=== PATIENT | female | born 1955 | race Caucasian/White ===

== ENCOUNTER 2020-05-01 14:00 | Outpatient (REF) | payer MEDICARE, BC, SELFPAY ==
[2020-05-01 21:43] LABS: ALT 36 U/L (14-59); AST 25 U/L (15-37); Albumin 3.7 g/dL (3.4-5.0); Alkaline Phosphatase 114 U/L (46-116); Anion Gap 12.4 mmol/L (3-11); BUN 19 mg/dL (7-18); Bilirubin, Total 0.5 mg/dL (0.2-1.0); CO2 23.6 mmol/L (21.0-32.0); CREATININE 0.81 mg/dL (0.55-1.02); Calcium 9.5 mg/dL (8.5-10.1); Chloride 102 mmol/L (98-107); Glucose 106 mg/dL (74-106); Potassium 3.9 mmol/L (3.5-5.1); Sodium 138 mmol/L (136-145); Total Protein 7.2 g/dL (6.4-8.2)
== END 2020-05-01 14:20 ==
LOC: NCHCN 14:00
PROVIDERS: Visit Provider Nurse Practitioner Family
DX: L30.4 Erythema intertrigo (principal); R03.0 Elevated blood-pressure reading, without diagnosis of hypertension; G80.9 Cerebral palsy, unspecified; R29.6 Repeated falls; R56.9 Unspecified convulsions; F41.9 Anxiety disorder, unspecified; K21.9 Gastro-esophageal reflux disease without esophagitis; D12.6 Benign neoplasm of colon, unspecified
CPT/HCPCS: 80053

== ENCOUNTER 2020-05-29 19:55 | Outpatient (REF) | payer MEDICARE, BC, SELFPAY | END 2020-05-29 20:15 | LOC: NCHCN 19:55 | PROVIDERS: PCP Nurse Practitioner Family; Visit Provider Nurse Practitioner Family | DX: R35.0 Frequency of micturition (principal) | CPT/HCPCS: 87077; 87086; 87186 ==

== ENCOUNTER 2020-06-17 20:58 | Outpatient (REF) | payer MEDICARE, BC, SELFPAY ==
[2020-06-19 18:45] LABS: COVID-19 RT-PCR UVMMC Result Negative (Negative)
== END 2020-06-17 21:18 ==
LOC: NCHCN 20:58
PROVIDERS: PCP Nurse Practitioner Family; Visit Provider Nurse Practitioner Family
DX: Z20.828 Contact with and (suspected) exposure to other viral communicable diseases (principal)
CPT/HCPCS: U0003

== ENCOUNTER 2020-07-22 14:05 | Outpatient (REF) | payer MEDICARE, BC, SELFPAY ==
[2020-07-22 22:43] LABS: COMMENT (LAB VIEW ONLY) 62.99 mg/dL
[2020-07-22 22:46] LABS: Microalb ug/mg Crea 149.4 ug/mg Cr
== END 2020-07-22 14:25 ==
LOC: NCHCN 14:05
PROVIDERS: PCP Nurse Practitioner Family; Visit Provider Nurse Practitioner Family
DX: R35.0 Frequency of micturition (principal); I10 Essential (primary) hypertension
CPT/HCPCS: 82043; 82570; 87086

== ENCOUNTER 2020-07-31 | Outpatient (REF) | payer MEDICARE, BC, SELFPAY | END 2020-08-01 00:38 | disposition home or self-care (01) | LOC: NCHCN | PROVIDERS: PCP Nurse Practitioner Family; Visit Provider Nurse Practitioner Family | DX: R35.0 Frequency of micturition (principal); Z87.440 Personal history of urinary (tract) infections | CPT/HCPCS: 87086 ==

== ENCOUNTER → 2020-08-05 09:45 | Outpatient (BNVA) | payer MEDICARE, BC, SELFPAY | PROVIDERS: PCP Nurse Practitioner Family; Referring Provider Nurse Practitioner Family; Visit Provider Psychiatry & Neurology Neurology | DX: G80.1 Spastic diplegic cerebral palsy (principal); R26.9 Unspecified abnormalities of gait and mobility; F41.8 Other specified anxiety disorders; G40.209 Localization-related (focal) (partial) symptomatic epilepsy and epileptic syndromes with complex partial seizures, not intractable, without status epilepticus; F81.9 Developmental disorder of scholastic skills, unspecified | CPT/HCPCS: 99205 ==

== ENCOUNTER 2020-08-11 19:00 | Outpatient (REF) | payer MEDICARE, BC, SELFPAY | END 2020-08-11 19:01 | disposition home or self-care (01) | LOC: NCHCN 19:00 | PROVIDERS: PCP Nurse Practitioner Family; Visit Provider Nurse Practitioner Family | DX: R35.0 Frequency of micturition (principal) | CPT/HCPCS: 87086 ==

== ENCOUNTER 2020-09-04 01:38 | Outpatient (CLI) | payer MEDICARE, BC, SELFPAY ==
--- NOTE | 2020-09-04 | DI.DEXA_ITS ---
EXAM: XR DEXA BONE DENSITY W/WO TRAE CLINICAL HISTORY: SCREENING FOR OSTEOPOROSIS IN POSTMENOPAUSAL WOMAN,Z78.0 TECHNIQUE: [employer] Horizon C densitometer. COMPARISON: No exams were available for comparison FINDINGS: The lateral view of the thoracic and lumbar spine shows no evidence of compression fractures. The teddy ne mineral density measurements of the lumbar spine correspond to a total T-score of -1.3, in the mil dly osteopenic range. The bone mineral density measurements of the left hip correspond to a total T- score of -1.8 and a femoral neck T-score of -2.7, in the osteo parotic range. The bone mineral densi ty measurements of the right forearm correspond to a total T-score of -1.8. T-score of the distal 3r d is -4.3, in the osteopenic range. IMPRESSION: Osteoporosis of the right forearm and right hip. Osteopenia of the lumbar spine.
--- NOTE | 2020-09-04 14:48 | DI.MAMMO_ITS ---
EXAM: MG MAMMO SCREENING 60 MIN DUR CLINICAL HISTORY: SCREENING, Z12.31, TECHNIQUE: Bilateral full field digital CC and MLO mammographic images were obtained with 3D tomosyn thesis and utilizing computer aided detection (CAD). COMPARISON: None. FINDINGS: Masses/Architectural Distortion: None seen. Microcalcifications: No suspicious pleomorphic-type are seen. Skin Thickening/Nipple Retraction: None. IMPRESSION: 1. No significant interval change with no specific features of malignancy noted. 2. Unless there is more urgent need, screening mammography is recommended, as per [employer] guidelines. BI-RADS Category 1 - Negative Breast Density - Category B - Scattered areas of fibroglandular density Breast density category C or D implies that the patient has dense breast tissue. Dense breast tissue is very common and is not abnormal but dense breast tissue can make it harder to find cancer on a ma mmogram. Also, dense breast tissue may increase their breast cancer risk. This information about the result of the mammogram report was provided to the patient to raise their awareness. Use this report when you speak with the patient about their risks for breast cancer, which includes their family hist ory. At that time, you may recommend for more screening tests (Ultrasound or MRI) as they might be us eful based on their risk. A negative radiographic report should not delay biopsy if a dominant or clinically suspicious mass is present. Up to ten percent of cancers are not identified on mammography. A negative report may reinforce clinical impression. Adenosis and dense breasts may obscure an underlying neoplasm. False positive reports average 6 to 10%. Patient will receive a letter notifying them of these results.
== END 2020-09-04 01:58 ==
PROVIDERS: PCP Nurse Practitioner Family; Visit Provider Nurse Practitioner Family
DX: Z12.31 Encounter for screening mammogram for malignant neoplasm of breast (principal); Z78.0 Asymptomatic menopausal state; M81.0 Age-related osteoporosis without current pathological fracture; M85.88 Other specified disorders of bone density and structure, other site
CPT/HCPCS: 77063; 77067; 77080

== ENCOUNTER 2020-10-07 08:25 | Outpatient (REF) | payer MEDICARE, BC, SELFPAY | END 2020-10-07 08:26 | disposition home or self-care (01) | LOC: NCHCN 08:25 | PROVIDERS: PCP Nurse Practitioner Family; Visit Provider Nurse Practitioner Family | DX: R35.0 Frequency of micturition (principal) | CPT/HCPCS: 87086 ==

== ENCOUNTER → 2020-10-16 08:56 | Outpatient (BNVA) | payer MEDICARE, BC, SELFPAY | PROVIDERS: PCP Nurse Practitioner Family; Referring Provider Nurse Practitioner Family; Visit Provider Physical Therapy Assistant | DX: Z12.11 Encounter for screening for malignant neoplasm of colon (principal); Z86.010 Personal history of colon polyps ==

== ENCOUNTER 2020-10-22 03:21 | Outpatient (CLI) | payer MEDICARE, BC, SELFPAY ==
[2020-10-22 10:23] LABS: Source Nasal/Nares
[2020-10-22 17:21] LABS: COVID-19 PCR Negative (Negative)
== END 2020-10-22 03:22 | disposition home or self-care (01) ==
LOC: LBO 03:21
PROVIDERS: PCP Nurse Practitioner Family; Visit Provider Surgery
DX: Z20.822 Contact with and (suspected) exposure to COVID-19 (principal); Z01.818 Encounter for other preprocedural examination
CPT/HCPCS: 87635

== ENCOUNTER 2020-10-24 10:56 | Day surgery (SDC) | payer MEDICARE, BC, SELFPAY ==
[2020-10-24 11:25] VITALS: BP 133/83; PULSE 86; RESP 14; TEMP 36.7; O2SAT 99
--- NOTE | 2020-10-24 11:39 | W.ANESPRE ---
General Info Date of Service Date Performed: 10/24/20 Height: 5 ft 3 in Weight: 64.8 kg Body Mass Index (BMI): 25.2 Surgical Procedure: Operation Date: 10/24/20 11:20 Proposed Procedures Side Surgeon genevieve Gutierrez, Meds Allergies and Home Medications Allergies Allergy/AdvReac Type Severity Reaction Status Date / Time lamotrigine [From Lamictal] Allergy Unknown Unverified 10/24/20 11:18 paroxetine [From Paxil] Allergy Unknown Unverified 10/24/20 11:18 sertraline [From Zoloft] Allergy Unknown Unverified 10/24/20 11:18 Home Medication Medication Instructions Recorded calcium carb-vit D3-minerals 600 1 tab PO DAILY tab 05/21/20 mg calcium-400 unit tablet amlodipine 2.5 mg tablet 5 mg PO DAILY 08/05/20 levetiracetam 1,000 mg tablet 1,500 mg PO BID #270 tab 08/05/20 oxybutynin chloride 5 mg 10 mg PO DAILY tab 08/05/20 tablet,extended release 24 hr bisacodyl 5 mg tablet,delayed 5 mg PO ONCE #4 tab 10/16/20 release magnesium 250 mg tablet 500 mg PO DAILY tab 10/16/20 polyethylene glycol 3350 17 238 g PO ONCE #238 g 10/16/20 gram/dose oral powder alendronate 70 mg PO DIRECTED 10/22/20 docusate sodium [DOK] 100 mg PO DAILY 10/22/20 vitamin A-vitamin C-vit E-min 1 tab PO DAILY 10/22/20 [Ocuvite] vit C-vit [id number]-om-3 cap PO 10/24/20 [Ocuvite] Current Visit Medications: Current Medications Generic Name Dose Route Start Last Admin Trade Name Freq PRN Reason Stop Dose Admin Ringer's Solution 1,000 mls @ 80 mls/hr 10/24/20 06:00 IV 11/22/20 23:59 INFUSION KISHORE IV Miscellaneous Supplies 1 each 10/24/20 06:00 Iv Access IV 11/22/20 23:59 DIRECTED KISHORE Sodium Chloride 0 ml 10/24/20 06:00 Normal Saline Flush 10 Ml Syr IV 11/22/20 23:59 PRN PRN Sodium Chloride 0 ml 10/24/20 06:00 Normal Saline 10 Ml Vial IJ 11/22/20 23:59 DIRECTED PRN Sterile Water 0 ml 10/24/20 06:00 Water,Injection,Sterile 10 Ml Vial IJ 11/22/20 23:59 DIRECTED PRN PFSH Active Problems Active Problems: Problem Status Onset Code Epilepsy G40.909 Cognitive developmental delay F81.9 Medical History Medical History Abnormality of gait ambulates with a cane Anxiety disorder Bacterial vaginitis Cerebral palsy Elevated blood pressure reading without diagnosis of hypertension Elevated LFTs Frequent falls has't fallen in 6 month GERD (gastroesophageal reflux disease) Insomnia Intertrigo Osteopenia Postmenopausal Recurrent UTI Tubular adenoma of colon Urinary frequency Surgical History Surgical History (Updated 10/24/20 @ 11:17 by Letty Gr) Hx of colonoscopy Lower extremity surgery planned right leg lengthening Tobacco Smoking/Tobacco Use Status: Never Alcohol Alcohol Intake: never Substance Use Substance use: Never Vital Signs and Lab Results Vital Signs Most Recent Vital Signs in EMR: Most Recent Vital Signs Temp Pulse Resp BP Pulse Ox 36.7 C 86 14 133/83 99 10/24/20 11:25 10/24/20 11:25 10/24/20 11:25 10/24/20 11:25 10/24/20 11:25 Lab Results Blood Type / Crossmatch: No Data to Display Complete Blood Count: No Data to Display Complete Metabolic Panel: Sodium Level 138 mmol/L (136-145) 05/01/20 12:22 05/01/20 Potassium Level 3.9 mmol/L (3.5-5.1) 05/01/20 12:22 05/01/20 Chloride Level 102 mmol/L (98-107) 05/01/20 12:22 05/01/20 Carbon Dioxide Level 23.6 mmol/L (21.0-32.0) 05/01/20 12:22 05/01/20 Blood Urea Nitrogen 19 mg/dL (7-18) H 05/01/20 12:22 05/01/20 Creatinine 0.81 mg/dL (0.55-1.02) 05/01/20 12:22 05/01/20 Calcium Level 9.5 mg/dL (8.5-10.1) 05/01/20 12:22 05/01/20 Albumin 3.7 g/dL (3.4-5.0) 05/01/20 12:22 05/01/20 Glucose Level 106 mg/dL (74-106) 05/01/20 12:22 05/01/20 Liver Function Panel: Alanine Aminotransferase (ALT/SGPT) 36 U/L (14-59) 05/01/20 12:22 05/01/20 Aspartate Amino Transf (AST/SGOT) 25 U/L (15-37) 05/01/20 12:22 05/01/20 Coagulation Panel: No Data to Display Cardiac Panel: No Data to Display Arterial Blood Gas: No Data to Display Venous Blood Gas: No Data to Display Pancreas Panel: No Data to Display Thyroid Panel: No Data to Display Infectious Disease: Coronavirus (COVID-19)(PCR) Negative (Negative) 10/22/20 09:28 10/22/20 Coronavirus 2019 Source Nasal/nares 10/22/20 09:28 10/22/20 Blood Cultures: No Data to Display Toxicology Panel: No Data to Display Panel: No Data to Display Anesthesia Assessment and Plan Anesthesia History Personal History: No History of Anesthesia Complications Family History: No Family History of Anesthesia Complications Exercise Tolerance Exercise Tolerance: Metabolic Equivalents>4 Cardiac & Pulmonary Exam Cardiac Exam: Normal S1/S2 Heart Sounds Pulmonary Exam: Clear Bilateral Breath Sounds Airway Exam Known Difficult Airway: No Mallampati Class: 2 Mouth Opening: Normal (> 3cm) Thyromental Distance: Greater than 3 cm Neck Range of Motion: Full ROM Neck Circumference: Normal Teeth Condition: Normal Dentition ASA Classification ASA Score: ASA 2 ASA Emergency: No NPO Status NPO Status: NPO Clears >2 hours, Solids >8 hours Anesthesia Plan Anesthesia Technique: General Anesthesia Airway Planned: Natural Airway Monitors Used: Standard Monitors Preoperative Comments:: hx focal epilepsy, cognitive development delay, 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
[2020-10-24 11:49] VITALS: BMI 25.2
[2020-10-24] MEDS: Lactated Ringers 1,000 ML 80 ML IV (12:10)
[2020-10-24 13:04] VITALS: BP 88/56; PULSE 117; RESP 18; TEMP 36.3; O2SAT 96
--- NOTE | 2020-10-24 13:12 | W.COLOREPORT ---
Date of service: 10/24/20 Time of Service: 13:12 Colonoscopy Report Date of procedure: 10/24/20 Pre-op diagnosis general: A. polyps Post-op diagnosis procedure note: other (divertic) Surgeon: Maribeth Gutierrez Anesthesia Type: General:No Airway Estimated blood loss (mL): 0 Pathology: other Complications: None Disposition: same day Prep: Miralax/Dulcolax Retraction Time: 8 mins Procedure Description: After informed consent was obtained the patient was taken to the procedure room and placed in a left decubitous position. Monitors were applied and a time out was done. The patients name, date of , procedure, allergies to medications and metal in their body was reviewed. The patient was then sedated. Once sedated and comfortable a rectal exam was done. External exam: She hemorrhoids not inflamed. internal exam revealed a normal sphincter tone and no palpable masses. The scope was then introduced and retrofelexed. no internal hemorrhoids were identified. The scope was then advanced to the cecum w/out difficulty. The TI and appendiceal orifice were identified. The prep was good. The scope was then slowly retracted over 8 minutes back into the rectum. No polyps were identified today. She does have moderate diverticular disease confined to the sigmoid colon. There is no signs of active bleeding or infection. There are no AVMs. The scope was removed and the patient was woken up and taken back to Same day surgery in stable condition. The patient tolerated the procedure well and there were no immediate complications. Follow up: The patient does not require any further colonoscopies, unless they develop changes in bowel habits or other new gastrointestinal complaints.
--- NOTE | 2020-10-24 13:15 | W.PM.DSUDISC ---
Discharge Plan Disposition Patient Disposition: HOME Condition: Good Discharge Details Reason For Visit: colon scope Attending Provider: Maribeth Gutierrez Primary Care Provider: Lesvia Bales Home Meds and New Rx's Prescriptions: Continued magnesium 250 mg tablet 500 mg PO DAILY RF: 0 amlodipine 2.5 mg tablet 5 mg PO DAILY RF: 0 levetiracetam [Keppra] 1,000 mg tablet 1,500 mg PO BID Qty: 270 RF: 3 calcium carbonate-vit D3-min 600 mg calcium- 400 unit tablet 1 tab PO DAILY RF: 0 oxybutynin chloride [Ditropan XL] 5 mg tablet extended release 24hr 10 mg PO DAILY RF: 0 alendronate 70 mg tablet 70 mg PO DIRECTED RF: 0 docusate sodium [DOK] 100 mg capsule 100 mg PO DAILY RF: 0 vitamin A-vitamin C-vit E-min Tablet 1 tab PO DAILY RF: 0 vit C-vit [id number] Capsule PO RF: 0 Discontinued bisacodyl [Dulcolax (bisacodyl)] 5 mg tablet,delayed release (DR/EC) 5 mg PO ONCE Qty: 4 RF: 0 polyethylene glycol 3350 17 gram/dose powder 238 g PO ONCE Qty: 238 RF: 0 Discharge Instructions Additional Instructions: [facility] Colonoscopy Post-Op Instructions Instructions for Everyone who is given Anesthesia: For your safety, please do the following for the next twenty-four (24) hours: *Do Not operate a motor vehicle (car, truck, motorcycle, etc.) *Do Not drink alcoholic beverages or use any recreational drugs for the first 24 hours or while taking pain medications. The medications in your body may have a reaction that can be dangerous. *Do Not make any important decisions or sign any important papers. Findings: Moderate diverticula confined to the sigmoid colon. No polyps. Follow up: You do not require any further colonoscopies, unless you are having any problems with your bowels, such as change in bowel habits, unexplained weight loss, bleeding that persists for more than 2 weeks. Follow-up with your primary care provider as recommended. 1. No lifting over 20 pounds or strenuous activity for the first 24 hours after your procedure. After 24 hours there are no restrictions on your activity but you may feel fatigued for a few days. 2. After you arrive home you may have a light meal and return to your normal diet as you can tolerate it without feeling sick to your stomach. 3. You may have a bloated, gaseous feeling in your belly (abdomen) after a colonoscopy. Passing gas and belching will help. Walking or lying down on your left side with your knees flexed may relieve the discomfort. Call the office at [phone] (Office) or [phone] (Hospital) right away if you notice any of the following: a.Vomiting of blood or ?coffee ground stools?. b.Rectal bleeding 1Tbsp, blood clots or continuous bleeding. c.Severe belly (abdominal) pain. d.A hard distended belly (abdomen) and an inability to pass gas. 4. Please don?t expect to have a normal BM (bowel movement) for 2-3 days after your procedure. 5. If there are questions regarding the findings of your procedure, please contact your doctor 6. If you are unable to contact your doctor with a problem, contact the hospital at [phone]. 7. Continue all your regular medications unless directed otherwise. I understand the above instructions and have no questions. Signature of Patient or Adult Escort Name of Responsible Adult Escort Signature of Nurse Date/Time DIVERTICULAR DISEASE OVERVIEW ? A diverticulum is a pouch-like structure that can form through points of weakness in the muscular wall of the colon (ie, at points where blood vessels pass through the wall). Diverticulosis affects men and women equally. The risk of diverticular disease increases with age. It occurs throughout the world but is seen more commonly in developed countries. WHAT IS DIVERTICULAR DISEASE? Diverticulosis ? Diverticulosis merely describes the presence of diverticula. Diverticulosis is often found during a test done for other reasons, such as flexible sigmoidoscopy, colonoscopy, or barium enema. Most people with diverticulosis have no symptoms and will remain symptom free for the rest of their lives. A person with diverticulosis may have diverticulitis, or diverticular bleeding. Diverticulitis ? Inflammation of a diverticulum (diverticulitis) occurs when there is thinning and breakdown of the diverticular wall. This may be caused by increased pressure within the colon or by hardened particles of stool, which can become lodged within the diverticulum. The symptoms of diverticulitis depend upon the degree of inflammation present. The most common symptom is pain in the left lower abdomen. Other symptoms can include nausea and vomiting, constipation, diarrhea, and urinary symptoms such as pain or burning when urinating or the frequent need to urinate. Diverticulitis is divided into simple and complicated forms. ?Simple diverticulitis, which accounts for 75 percent of cases, is not associated with complications and typically responds to medical treatment without surgery. ?Complicated diverticulitis occurs in 25 percent of cases and usually requires surgery. Complications associated with diverticulitis can include the following: ?Abscess ? a localized collection of pus ?Fistula ? an abnormal tract between two areas that are not normally connected (eg, bowel and bladder) ?Obstruction ? a blockage of the colon ?Peritonitis ? infection involving the space around the abdominal organ ?Sepsis ? overwhelming body-wide infection that can lead to failure of multiple organs Diverticular bleeding ? Diverticular bleeding occurs when a small artery located within a diverticulum is eroded and bleeds into the colon. Diverticular bleeding usually causes painless bleeding from the rectum. In approximately 50 percent of cases, the person will see maroon or bright red blood with bowel movements. Is bleeding with a bowel movement normal? ? It is not normal to see blood in a bowel movement; this can be a sign of several conditions, most of which are not serious (eg, hemorrhoids) but some of which are serious and require immediate treatment. Anyone who sees blood after a bowel movement should consult with their healthcare provider to determine if further testing or evaluation is needed. DIVERTICULOSIS AND DIVERTICULITIS DIAGNOSIS ? Diverticulosis is often found during tests performed for other reasons. ?Barium enema ? This is an x-ray study that uses barium in an enema to view the outline of the lower intestinal tract. This is an older test and has been largely replaced by computed tomography (CT) scan. ?Flexible sigmoidoscopy ? This is an examination of the inside of the sigmoid colon with a thin, flexible tube that contains a camera. ?Colonoscopy ? This is an examination of the inside of the entire colon. ?CT scan ? A CT scan is often used to diagnose diverticulitis and its complications. If diverticulitis (not just diverticulosis) is suspected, the above three tests should not be used because of the risk of perforation. TREATMENT Diverticulosis ? People with diverticulosis who do not have symptoms do not require treatment. However, most clinicians recommend increasing fiber in the diet, which can help to bulk the stools and possibly prevent the development of new diverticula, diverticulitis, or diverticular bleeding. Fiber is not proven to prevent these conditions in all patients but may help to control recurrent episodes in some. Increase fiber ? Fruits and vegetables are a good source of fiber. Fiber content of packaged foods can be calculated by reading the nutrition label. Seeds and nuts ? Patients with diverticular disease have historically been advised to avoid whole pieces of fiber (such as seeds, corn, and nuts) because of concern that these foods could cause an episode of diverticulitis. However, this belief is completely unproven. We do not suggest that patients with diverticulosis avoid seeds, corn, or nuts. Diverticulitis ? Treatment of diverticulitis depends upon how severe your symptoms are. Home treatment ? If you have mild symptoms of diverticulitis (mild abdominal pain, usually left lower abdomen), you can be treated at home with a clear liquid diet and oral antibiotics. However, if you develop one or more of the following signs or symptoms, you should seek immediate medical attention: ?Temperature >100.1?F (38?C) ?Worsening or severe abdominal pain ?An inability to tolerate fluids Hospital treatment ? If you have moderate to severe symptoms, you may be hospitalized for treatment. During this time, you are not allowed to eat or drink; antibiotics and fluids are given into a vein. If you develop an abscess of the colon, you may require drainage of the abscess (usually performed by placing a drainage tube across the abdominal wall) or by surgically opening the affected area. Surgery ? If you develop a generalized infection in the abdomen (peritonitis), you will usually require an emergency operation. A two-part operation may be necessary in some cases. ?The first operation involves removal of the diseased colon and creation of a colostomy. A colostomy is an opening between the colon and the skin, where a bag is attached to collect waste from the intestine. The lower end of the colon is temporarily sewed closed to allow it to heal. ?Approximately three to six months later, a second operation is performed to reconnect the two parts of the colon and close the opening in the skin. You are then able to empty your bowels through the rectum. Sometimes patients require up to a year to recover from the first operation, depending on how sick they were. In non-emergency situations, the diseased area of the colon can be removed and the two ends of the colon can be reconnected in one operation, without the need for a colostomy. Surgery versus medical therapy ? An operation to remove the diseased area of the colon may be necessary if you do not improve with medical therapy. After an episode of uncomplicated diverticulitis, elective surgery is generally not required as the risk of another attack or requiring emergency surgery is low. However, patients with persistent symptoms attributable to diverticulitis, a history of complicated diverticulitis, or a compromised immune system should be evaluated for possible surgery to prevent another attack. In such patients, another attack has been associated with a higher risk of complications or . Of course, the decision will also depend in part upon your other medical conditions and ability to undergo surgery. In many cases, an elective operation can be performed laparoscopically, using small incisions, rather than the typical vertical (up and down) abdominal incision. Laparoscopic surgery usually allows you to recover more quickly and shortens the hospital stay. After diverticulitis resolves ? After an episode of diverticulitis resolves, if you have not had a recent colonoscopy, the entire length of the colon should be evaluated to determine the extent of disease and to rule out the presence of abnormal lesions such as polyps or cancer. Recommended tests include colonoscopy, barium enema and sigmoidoscopy, or CT colonography. Diverticular bleeding ? Most cases of diverticular bleeding resolve on their own. However, some people will need further testing or treatment to stop bleeding, which may include a colonoscopy, angiography (a treatment that blocks off the bleeding artery), bleeding scan, or surgery. DIVERTICULAR DISEASE PROGNOSIS Diverticulosis ? Over time, diverticulosis may cause no problems or it may cause episodes of bleeding and/or diverticulitis. Approximately 15 to 25 percent of people with diverticulosis will develop diverticulitis, while 5 to 15 percent will develop diverticular bleeding. Diverticulitis ? Approximately 85 percent of people with uncomplicated diverticulitis will respond to medical treatment, while approximately 15 percent of patients will need an operation. After successful treatment for a first attack of diverticulitis, one-third of patients will remain asymptomatic, one-third will have episodic cramps without diverticulitis, and one-third will go on to have a second attack of diverticulitis. The prognosis tends to remain similar following a second attack of diverticulitis. Only 10 percent of people remain symptom-free after a second attack. Subsequent attacks tend to be of similar severity, not increasing in severity as previously believed. High Fiber Diet What is Dietary Fiber? All fiber comes from plants, bushes, amrit or trees. Of course, the ones that we eat provide us with fruits, vegetables and grains. There are many different types of fiber but the three that are most important to the health of the body are: Insoluble Fiber This fiber does not dissolve in water, nor is it fermented by the bacteria residing in the colon. Rather, it retains water and in so doing, helps to promote a larger, bulkier and more regular bowel activity. This, in turn, may be important in preventing disorder such as diverticulosis and hemorrhoids, and in sweeping out certain toxins and cancer causing carcinogens. Sources of insoluble fiber are: ? whole grain wheat and other whole grains ? corn bran, including popcorn, unflavored and unsweetened ? nuts and seeds ? potatoes and the skins from most fruits from trees such as apples, bananas and avocados ? many green vegetables such as green beans, zucchini, celery and cauliflower ? some fruit plants such as tomatoes and kiwi Soluble Fiber These fibers are fermented or used by the colon bacteria as a food source or nourishment. When these good bacteria grow and thrive, many health benefits occur in both the colon and the body. Soluble fiber is present in some degree in most edible plant foods, but the ones with the most soluble fiber include: ? legumes such as peas and most beans, including soybeans ? oats, rye and barley ? many fruits such as berries, plums, apples bananas and pears ? certain vegetables such as broccoli and carrots ? most root vegetables ? psyllium husk supplement products Prebiotic Soluble Fiber These are relatively newly discovered soluble plant fibers. The technical name for this fiber is inulin or fructan. When these soluble fibers are fermented by the good colon bacteria, some further significant health benefits have been shown to occur by research in many medical centers. These soluble prebiotic fibers occur in significant amounts in: ? asparagus ? yams ? onions ? garlic ? bananas ? leeks ? agave ? chicory and other root vegetables such as [place] artichokes ? wheat, rye and barley (smaller amounts) Benefits of a High Fiber Diet The health benefits of a high fiber diet, consumed on a regular basis and reaching recommended amounts (below), are now fairly well-defined. There are some additional benefits in the early research stage with the prebiotic soluble fibers. What is now known regarding a high fiber diet include: Bowel Regularity A high fiber diet promotes regularity with a softer, bulkier and regular stool pattern. This decreases the chance of hemorrhoids, diverticulosis and perhaps colon cancer. Cholesterol and Reduced Triglycerides The soluble fibers are the ones that will reduce cholesterol levels when used on a regular basis. Psyllium husk and prebiotic soluble fiber will also reduce cholesterol. They may also reduce the incidence of coronary heart disease. Oats, flax seeds and legumes or beans are the recommended fibers. Colon Polyps and Cancer It is still not certain if a high fiber diet helps prevent colon cancer. Considerable research suggests that this may occur. Certainly it makes sense to increase regularity and so speed the movement of cancer causing carcinogens through the bowel. In addition, reducing a heavy meat diet reduces the bile flow from the liver in a favorable way. This, too, reduces the amount of carcinogens that reach and are manufactured in the colon. Finally, a high fiber diet, including prebiotic soluble fiber, increases the integrity and health of the wall of the colon. The risk of cancer may be reduced. Colon Wall Integrity A high fiber diet changes the bacterial makeup of the colon toward a more favorable balance. For instance, it is known that those people with obesity, diabetes type 2 and inflammatory bowel disease have a predominance of bad bacteria in the colon. This, in turn, may render the bowel wall weak and allow bacteria and, indeed, even toxins to seep through. A high fiber diet with a modest reduction in animal and meat products may return the bacterial makeup to a more positive balance. This, in particular, has been seen when the soluble fiber prebiotics are added to the diet. Blood Sugar Soluble fiber such as in legumes (beans), oats and in prebiotic fibers slows the absorption of blood sugar and so helps regulate the sugar in the blood. Insoluble fiber on a regular basis is associated with reduced risk of type 2 diabetes. Weight Loss High fiber diets are more filling and give a sense of fullness sooner than an animal and meat based diet does. In addition, the soluble prebiotic fibers have been shown to turn off the hunger hormones produced in the wall of the gut and to increase the hormones that give a sense of fullness. Those hormones are made in the wall of the gut. New medical research has shown that the bacterial makeup in the colon in overweight people is abnormal to the extent that they manufacture and absorb almost twice the number of calories through the colon wall as do normals. Prebiotic fibers (below) will help change this hormonal balancein a favorable way. Bacteria and the Function of the Colon The colon finishes the digestive process. Hopefully, the waste products move through in a nice regular manner. Insoluble fibers help this process by retaining water and so producing a bulkier, softer stool, which is easy to pass. The additional role of the colon is to provide a home for an enormous number of micro-organisms, mostly bacteria. Recent research has shown that there are over 1,000 species of bacteria with a total bacterial count ten times the number of cells in the body. These bacteria play a major role in keeping the colon wall itself healthy. In addition, these good bacteria produce a very strong immune system for the body. They significantly increase calcium absorption and bone density. They provide other documented benefits. It is the soluble fibers in the diet that are so effective in stimulating the growth of good colon bacteria. How Much is Enough? The amount of fiber in food is measured in grams. National nutritional authorities recommend the following amounts of dietary fiber daily. Under Age 50 Over Age 50 Men 38 grams 30 grams Women 25 grams 21 grams For a week or so, it is best to tally the amount of fiber you are consuming. Boxed and packaged foods will have the amount of fiber per serving on the nutrition label. Which Fibers and Which Foods are Best? As noted, healthy fiber is only found in plants. The three major categories are whole grains, fruits and vegetables. Whole Grains Wheat, oats, barley, wild or brown rice, amaranth, buckwheat, bulgur, corn, millet, quinoa, rye, sorghum, teff and triticals. By far, wheat, oats and wild or brown rice are most common. Always buy whole grain products. White bread, baked goods and rolls almost always are made from wheat flour. Wheat flour is white because most of the fiber, vitamins and other nutrients have been removed. Try not buy enriched grains. What this means is that simple white flour has had vitamins added to it by the correctional corporal. The word, enriched, implies a good and healthy product. On the contrary, enriched means that most of the fiber has been removed and a few vitamins added. Fruits Fruits come from trees such as apple and pear or from bushes or amrit. You should eat a wide variety of fruits, preferably with every meal. In many cases, the skin of a fruit such as apple will contain much of the insoluble fiber while the pulp contains most of the soluble fiber. To the extent possible, buy organic fruits as these will have little or no pesticides. Always wash fruit. Vegetables Eat a wide variety of vegetables. They should be a mainstay of lunch and dinners. Frozen vegetables retain as much nutrition and fiber as fresh vegetables. As with fruit, try to buy organic to reduce any residual pesticide ingestion. Wash fresh vegetables thoroughly. Cruciferous vegetables such as broccoli, [place] sprouts and cauliflower contain certain chemicals such as sulforaphane. This substance has very strong anti-cancer properties and should be eaten frequently. Legumes, Beans, Peas and Soybeans These vegetables have plenty of soluble fiber and should be part of a varied vegetable intake. Beans, in particular, contain a certain type of fiber that may lead to harmless gas or bloating. Nuts and Seeds These are rich sources of fiber and are a good substitute for sweets such as candies and baked sweet goods. While nuts and seeds are rich in fiber, they also contain vegetable fat and so can and do add calories. Read the Labels As noted, fresh and frozen foods are usually better. They have good nutrition and few, if any, chemicals added to them. When buying packaged foods and, in particular grains, look for three things: ? The first word on the label should be whole, such as whole wheat or whole grain. ? Check out the calories and the amount of fiber in a serving. ? How many and what other additives or chemicals are added. Fewer is always better. Do you know what each additive does? Some are added not for the benefit of the senior buyer planner but rather for manufacturers. These could and do include sugar, artificial flavor, chemicals to prevent oxidation and spoilage, emulsifiers to blend the product. You have to be a detective automobile section. Fiber Facts, Nuggets and Pearls ? For breakfast you can easily get the day started well by using a high fiber, whole grain cereal. Check the labels. Add fruit such as blueberries and bananas. If you are an egg eater, use whole wheat or grain toast. Adding wheat germ gives you a good fiber kick. ? Always use whole grain or wheat with rolls and sandwiches. Does your fast food store not have them? Perhaps you look elsewhere. Eating an occasional black baer or veggie burger provides variety. ? Snacks should consist of fruit and/or nuts. While nuts are loaded with fiber, they are an energy rich food, meaning they have a lot of calories in a small packet. ? Fruit juices should contain pulp. Clear juices such as clear orange, pear or apple juice contain little fiber and have a lot of fructose. Prune juice is usually high in fiber. ? Homemade soups ? adding fresh or frozen vegetables to a chicken or vegetable stock is a good way to start homemade soup. ? Salads ? adding cooked and then chilled vegetables provide great flavoring to almost any salad. Remember, a [place] salad has lots of cooked corn in it. Small slices of apples or oranges and nuts such as chopped walnuts or sliced almonds always adds taste, variety and fiber to almost any salad. ? Fruit ? Try to eat fruit of some type with almost every meal. ? Rethink how you place the various foods on your dinner plate. Reducing the portions of the meat or animal food portion to the side with equal or more portions of vegetables, legumes and fruits portion always allows for more fiber. There was never anything magic about making the meat or animal food portion the main part of the dinner plate. Eating from smaller plates can, over time, trick your mind and alf habit of using a dinner plate. Again, there is nothing magic in an 11, 12, or 13 inch dinner plate. Fiber Supplements There are a variety of fiber supplements available on the food or pharmacy shelves. Psyllium This soluble plant fiber has been used in [place] for over 2,000 years. It is a soluble fiber with mucilage in it. This acts to retain a lot of water and also is fermented by colon bacteria. When 7 grams a day are used, it does lower cholesterol. Metamucil in various forms is psyllium. Methyl Cellulose All the cellulose products come from finely ground wood chips which are then treated in a variety of ways such as boiling in acids. Methyl cellulose is an insoluble fiber which does dissolve in water. It is also an emulsifier, meaning it blends oils and water. Citrucel is methyl cellulose (MC). MC may not be appropriate for Crohn?s disease or ulcerative colitis as several medical studies have shown that certain emulsifiers dissolve the mucous lining of the colon in animals prone to Crohn?s disease. This then allows bacteria to invade the underlying tissue. Inulin Inulin is a soluble prebiotic fiber found in many foods and which are fermented mostly in the left side of the colon. It is available in a supplement as generic inulin and in Fiber Choice. Oligofructose FOS These are also prebiotic fibers. They are fermented very quickly in the right side of the colon. Prebiotin This product is a combination of oligofructose, which feeds the bacteria in the right side of the colon and inulin, which does the same in the left side of the colon. There seems to be a benefit for this particular formula based on medical research. Prebiotic Soluble Fiber These may be the healthiest of all the soluble fibers. They grow in many plants and have had a great deal of research done on them in the last 10-15 years. These fibers are found in asparagus, yams and other root vegetables such as chicory, garlic, onion, leeks and in smaller amounts in wheat. This research has shown the following: ? Increase in good and decrease in bad colon bacteria ? Increase calcium absorption and enhanced bone mass ? Enhanced immune system ? Appetite and weight control by changing the hormone appetite signals to the brain ? May decrease colon cancer incidence ? Reduce or correct a leaky colon Eating a wide variety of plant food up to the recommended amount will likely give you enough prebiotic fiber. Supplements such as Prebiotin can be added to the diet. Short Chain Fatty Acids (SCFA) Some rather remarkable research findings have shown that one of the benefits of ingesting a lot of soluble fiber, in particular the prebiotic ones, results in larger amounts of SCFAs in the colon. These SCFAs are made by the good bacteria in the colon such as Bifidobacter and Lactobacillus. These small molecules have been shown to do the following: ? Enhance the health and integrity of the colon wall ? Provide nourishment for the cells that actually line the colon ? Increases the acidity of the colon which is a very real health benefit ? Stabilize blood sugar for diabetics ? Reduce blood cholesterol and triglyceride ? Significantly enhance immunity ? May be a benefit for Crohn?s disease and ulcerative colitis patients Fiber and Gas Everyone has intestinal gas and that is a good thing. It means that bacteria, hopefully the good ones, are thriving. The normal amount of flatus passed each day depends on sex and what is eaten. The normal number of flatus is 10-20 times a day. When the bacteria that make intestinal gases are growing, it also means that other good bacteria are using the same fibers to grow and produce multiple health benefits, including the production of healthy short-chain fatty acids. These substances are produced quietly in the colon and produce many health-related outcomes. Soluble fiber should always be used in a gradual manner. If too much is consumed at any one time, then excess, but harmless, intestinal gas can occur. People with irritable bowel syndrome are particularly prone to bloating and mild cramping. In this instance, soluble fiber in the diet or supplement should be used in small doses and increased gradually. Finally, prebiotic fibers tend to cause the production of short-chain fatty acids which acidify the colon. This, in turn, reduces or stops the growth of bacteria that make the smelly hydrogen sulfide gases that produce noxious flatus. People who consume many vegetables with prebiotics or take a prebiotic fiber supplement often have non-odoriferous flatus. Fiber and Irritable Bowel Syndrome Irritable bowel syndrome (IBS) is one of the most common disorders of the lower digestive tract. The symptoms of IBS can be quite varied. They can be a mix of several symptoms such as constipation, diarrhea, crampy abdominal discomfort, bloating and gas. An attack of IBS can be triggered by emotional tension and anxiety, poor dietary habits and certain medications. It is now known that infections in the intestine can lead to long-term IBS symptoms. Increased amounts of fiber in the diet can help relieve the symptoms of irritable bowel syndrome by producing soft, bulky stools. This helps to normalize the time it takes for the stool to pass through the colon. Recent medical research with newer techniques has shown some surprising and dramatic findings for IBS patients. Specifically, there is a very significant and abnormal shift of bacteria from those that provide health benefits to those bad bacteria that we really do not want in the gut. The technical name for this bad group of bacteria is called Firmicutes. Along with this abnormal bacterial collection, there is a smoldering low-grade inflammation in the gut wall that may contribute to symptoms. The goal for IBS patients should be to gradually increase the soluble dietary fibers in the diet so as to promote the growth of good bacteria and so suppress the bad ones along with the associated inflammation. IBS patients need to be careful of the amount of soluble fiber they consume. The reason for this is that, while the good colon bacteria thrive on these fibers and produce health benefits, other gas-forming bacteria may generate excessive but harmless gas and subsequent bloating. Thus, soluble plant fibers or a dietary prebiotic supplement should be taken in small initial doses and then gradually increased to tolerance. Fiber and Colon Polyps/Cancer Colon cancer is a major health problem. This disease is most common in Western cultures. It is not seen very often in rural cultures where the diet is mostly plant based. Usually, colon cancer starts out as a colon polyp, a benign mushroom-shaped growth. In time it grows, and in some people it becomes cancerous. Colon cancer is usually always curable if polyps are removed when found or if surgery is performed at an early stage. It is now known that people can inherit the risk of developing colon cancer, but diet is important, too. As noted, there is a very low rate of colon cancer in residents of countries where grains are unprocessed and retain their fiber. It seems that in the [place] world, cancer-containing agents (carcinogens) remain in contact with the colon wall for a longer time and in higher concentrations. So, a large bulky stool may act to dilute these carcinogens by moving them through the bowel more quickly. Less carcinogenic exposure to the colon may mean fewer colon polyps and less cancer. A very current review of the entire world?s literature on the effect of fiber on colon polyps and cancer prevention has shown rather clearly that for every 10 grams of fiber added to the diet, there is a 10% reduction in incidence of colon cancer. So the recommended 30 gram fiber diet would result in a 30% less chance of getting these tumors. There are also substances produced in the colon by the good bacteria that seem to retard certain pre-cancer factors from developing. They are called short-chain fatty acids (SCFA). See above for description of SCFAs. A high fiber diet increases these substances. So, the combination of dietary fiber and the production of short-chain fatty acids have a clear health benefit. Fiber and Diverticulosis Prolonged, vigorous contraction of the colon over a long period of time may result in diverticulosis. This increased pressure causes small and, eventually, larger ballooning pockets to form. These pockets by themselves cause no problem. However, sometimes they become infected (diverticulitis) or even break open (perforate) causing infection or inflammation within the abdomen (peritonitis). A high fiber diet increases the bulk in the stool and thereby reduces the pressure within the colon. By so doing, the formation of pockets may be reduced or possibly even stopped. In the past, many physicians were fearful that seeds as in tomatoes, nuts or berries were harmful and could get inside these pockets and rattle around, causing damage. We now know that this has never been the case and that these foods contain lots of fiber and are actually beneficial for diverticulosis patients. Certain bulking agents such as psyllium are traditional types of bulk producing supplements. Psyllium is a soluble fiber. Combining it with insoluble fiber as in wheat bran or corn bran (no gluten) can enhance this bulking effect even more. A product containing a prebiotic, psyllium and wheat bran is probably a very good combination for bowel regularity. Prebiotin Regularity/Diverticulosis is one such product. Discharge Orders Discharge Orders: Discharge Order (Routine); Ordered 10/24/20 Ordered By: Maribeth Gutierrez DS: Diagnosis Discharge Diagnosis (1) Diverticula of colon: Status: Acute
--- NOTE | 2020-10-24 13:17 | W.ANESPOSTOP ---
Postoperative Evaluation Date, Time and Location Date Performed: 10/24/20 Time Performed: 13:17 Patient Location: Day [facility] Unit Vital Signs Most Recent Imported Vital Signs: Most Recent Vital Signs Temp Pulse Resp BP Pulse Ox 36.7 C 86 14 133/83 99 10/24/20 11:25 10/24/20 11:25 10/24/20 11:25 10/24/20 11:25 10/24/20 11:25 Most Recent Manually Entered Vital Signs: Adult Blood Pressure: 88/56 Heart Rate: 117 Respirations: 18 Oxygen Saturation (%): 96 Temperature (C): 36.3 C Pain Score (0-10 Scale): 0 Pain Score Most Recent Pain Score: Most Recent Pain Score Pain Level 0 10/24/20 11:25 Assessment Mental Status: Awake (Alert & Oriented to Patient Baseline) Airway and Respiratory Function: Patent airway with normal (patient baseline) respiratory exam Cardiovascular Function: Hemodynamically Stable Hydration Status: Adequately Hydrated Nausea & Vomiting: No Nausea or Vomiting Pain: Pt. Denies Any Pain Peripheral Nerve Block: Patient did not receive a nerve block
[2020-10-24 13:22] VITALS: BP 88/56; PULSE 117; RESP 18; TEMPC 36.3; O2SAT 96
[2020-10-24 13:31] VITALS: BP 103/53; PULSE 89; RESP 14; TEMP 36.2; O2SAT 95
== END 2020-10-24 13:56 | disposition home or self-care (01) ==
PROVIDERS: PCP Nurse Practitioner Family; Visit Provider Surgery
PROC: 0DJD8ZZ Inspection of Lower Intestinal Tract, Via Natural or Artificial Opening Endoscopic (ICD-10-PCS; CPT 45378; principal; 2020-10-24 11:15)
DX: Z12.11 Encounter for screening for malignant neoplasm of colon (principal); K57.30 Diverticulosis of large intestine without perforation or abscess without bleeding; Z86.010 Personal history of colon polyps; K21.9 Gastro-esophageal reflux disease without esophagitis; F41.9 Anxiety disorder, unspecified; G80.9 Cerebral palsy, unspecified
CPT/HCPCS: G0105; J2001

== ENCOUNTER 2021-01-05 12:46 | Outpatient (REF) | payer MEDICARE, BC, SELFPAY ==
[2021-01-05 21:55] LABS: Anion Gap 13.4 mmol/L (3-11); BUN 12 mg/dL (7-18); CO2 25.6 mmol/L (21.0-32.0); CREATININE 0.9 mg/dL (0.55-1.02); Calcium 9.1 mg/dL (8.5-10.1); Chloride 103 mmol/L (98-107); Glucose 83 mg/dL (74-106); Magnesium 2.6 mg/dL (1.8-2.4); PHOSPHORUS 3.8 mg/dL (2.6-4.7); Potassium 3.7 mmol/L (3.5-5.1); Sodium 142 mmol/L (136-145)
== END 2021-01-05 12:47 | disposition home or self-care (01) ==
LOC: NCHCN 12:46
PROVIDERS: PCP Nurse Practitioner Family; Visit Provider Nurse Practitioner Family
DX: I10 Essential (primary) hypertension (principal); G40.909 Epilepsy, unspecified, not intractable, without status epilepticus; Z87.440 Personal history of urinary (tract) infections
CPT/HCPCS: 80048; 83735; 84100

== ENCOUNTER 2021-01-20 12:04 | Outpatient (REF) | payer MEDICARE, BC, SELFPAY | END 2021-01-20 12:05 | disposition home or self-care (01) | LOC: NCHCN 12:04 | PROVIDERS: PCP Nurse Practitioner Family; Visit Provider Nurse Practitioner Family | DX: R35.0 Frequency of micturition (principal) | CPT/HCPCS: 87086 ==

== ENCOUNTER 2021-02-12 18:11 | Outpatient (REF) | payer MEDICARE, BC, SELFPAY | END 2021-02-12 18:12 | disposition home or self-care (01) | LOC: NCHCN 18:11 | PROVIDERS: PCP Nurse Practitioner Family; Visit Provider Nurse Practitioner Family | DX: Z87.440 Personal history of urinary (tract) infections (principal); R82.998 Other abnormal findings in urine | CPT/HCPCS: 87086 ==

== ENCOUNTER 2021-03-27 07:12 | Outpatient (CLI) | payer MEDICARE, BC, SELFPAY ==
[2021-03-27 10:53] LABS: Source Nasal/Nares
[2021-03-27 13:36] LABS: COVID-19 PCR Negative (Negative)
== END 2021-03-27 07:13 | disposition home or self-care (01) ==
PROVIDERS: PCP Nurse Practitioner Family; Visit Provider Family Medicine
DX: Z20.822 Contact with and (suspected) exposure to COVID-19 (principal); Z01.818 Encounter for other preprocedural examination
CPT/HCPCS: 87635

== ENCOUNTER 2021-03-30 01:44 | Outpatient (CLI) | payer MEDICARE, BC, SELFPAY ==
--- NOTE | 2021-03-30 14:00 | ST.MBS ---
Date of Service Date of service: 03/30/21 Time of Service: 14:00 Modified Barium Swallow Study Findings: Videofluoroscopic Swallowing Evaluation / Modified Barium Swallow Study (VFSE/MBSS) Speech Language Pathology Report HPI: Patient referred for clinical swallow evaluation from Dr Lesvia Bales given concern for dysphagia. Patient endorses recent choking episode(s), previous hx of esophageal regurgitation, retrograde flow. Recently had two teeth pulled a few weeks ago, has two molars missing. Most recent seizure in 2012. Reports family hx of esophageal stasis. range aide reports patient is provided soft solid foods at current residence as part of her care plan. 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 Patient continues to report that food is harder to go down (points to abdomen), endorses history of globus for past 1-2 years. Feels some liquids (juices) sit and then recedes and endorses she eats and drinks very fast. Reports difficulties with Regular solids such as tacos. Denies any issues with swallowing pills, has assistance with these provided 1 at time with thin liquids. OBJECTIVE: Videofluoroscopic Swallow Evaluation (VFSE/MBSS) was conducted in the lateral and [id number] projections by Speech-Language Pathologist, in collaboration with Radiologist, to evaluate oropharyngeal swallow function. Anatomic view under fluoroscopy: WFL Other: *forward leaning posture throughout study does cause difficulties in identifying anatomy at times as patient moved out of frame (ie, full oral cavity, movement of hyoid, etc), however patient is able to adjust posture independently when asked; patient unable to stand for entirety of study, reporting she needed to sit or else she may fall; full MBSimP protocol was truncated to following PO trials for this reason. PO barium contrast trials: Oral barium water soluble contrast was administered as follows: IDDSI Level 0 Varibar thin liquid (40% w/v) IDDSI Level 2 Varibar nectar thick/mildly thick liquid (40% w/v) IDDSI Level 7 Regular Solid: 1/2 maritza cracker coated in 3 mL Varibar pudding; 13 mm barium tablet PHYSIOLOGIC FINDINGS Oral Phase 1 Lip Closure: 1-Interlabial escape; no progression to anterior lip 2 Tongue Control: 2- Posterior escape of less than half of bolus 3 Bolus Preparation/Mastication: 1- Slowed/prolonged chewing/mashing with complete recollection 4 Bolus Transport/Lingual Motion: 2- Slowed tongue motion; 2 or less AP movements 5 Oral residue: 2- Residue collection on oral structures Location: palate, tongue 6 Initiation of pharyngeal swallow: 3- Bolus head in pyriform sinus Pharyngeal Phase 7 Velar Elevation: 1- Trace column of contrast or air between soft palate and pharyngeal wall 8 Laryngeal Elevation: 1- Partial superior movement of thyroid cartilage with partial approximation of arytenoids to epiglottic petiole 9 Anterior Hyoid Excursion: 1- Partial anterior movement 10 Epiglottic Movement: 1- Partial inversion 11 Laryngeal Vestibule Closure: 1- Incomplete; narrow column of air/contrast in laryngeal vestibule Penetration occurs during initial swallow onset from current bolus, more frequent with less viscous liquids 12 Pharyngeal Stripping Wave: 1- Present; diminished 13 Pharyngeal Contraction: DNT; lack of AP view 14 PES/UES Openin- Complete distension and complete duration; no obstruction of flow 15 Tongue Base Retraction: 1- Trace column of contrast between tongue base and posterior pharyngeal wall 16 Pharyngeal residue: 1- Trace residue within or on pharyngeal structures Location: Valleculae, Pyriform sinuses Penny Pharyngeal Residue Severity Rating Scale (YPRS) (Tracy et al, 2015) Vallecula Residue Severity IV Moderate 25-50% Epiglottic ligament covered Pyriform Sinus Residue Severity II Trace 1-5% Trace coating of the mucosa Esophageal Phase 17 Esophageal Clearance Upright Position: DNT; lack of AP view - suspect complete clearance with trace esophageal coating NOTE: This study was performed for interpretation only of the oropharyngeal and pharyngoesophageal domains of swallowing. It is not intended to diagnose any other radiologic abnormalities or substitute for a formal esophagram study. Overall 8-Point Penetration-Aspiration Scale (PAS) (Rosengraciak, et al, 1996) 1 - No material enters the airway. 2 - Material enters the airway, remains above the vocal folds, and is ejected from the airway. 3 - Material enters the airway, remains above the vocal folds, and is not ejected from the airway. 4 - Material enters the airway, contacts the vocal folds, and is ejected from the airway. 5 - Material enters the airway, contacts the vocal folds, and is not ejected from the airway. 6 - Material enters the airway, passes below the vocal folds, and is ejected into the larynx or out of the airway. 7 - Material enters the airway, passes below the vocal folds, and is not ejected from the trachea despite effort. 8 - Material enters the airway, passes below the vocal folds, and no effort is made to eject. Clinical Indicator(s) of Prandial/Postprandial Aspiration: N/A Trialed Compensatory Swallow Strategies & Outcome: Postures Chin Tuck Posture - reflexive x1 - no change Maneuvers 3-second Preparatory Set - unsuccessful (prespill to valleculae, p.s. as study continues) Secondary saliva swallow x1 - successful in clearing vallecular and/or p.s. residue Bolus Modifications Delivery/Alternating Consistencies - successful in clearing vallecular and/or p.s. residue Reduced Volume - successful in reducing amount of vallecular and/or p.s. residue Reduced Rate of Intake - successful in reducing amount of vallecular and/or p.s. residue Increased Viscosity - successful in reducing presence of penetration Dysphagia Outcome and Severity Scale (RAJWINDER) LEVEL 4 - Full PO: modified diet and/or independence - Mild-moderate dysphagia; Intermittent supervision/cueing, 1 or 2 consistencies restricted IMPRESSIONS: Patient demonstrates mild-moderate oropharyngeal dysphagia, likely chronic; suspected cause is combination of postural difficulties (forward leaning posture), generalized muscle weakness/incoordination and reported behavioral patterns during mealtimes (increased rate of intake); dysphagia presentation is characterized by piecemeal deglutition, reduced lingual control, velar weakness, delayed onset of pharyngeal swallow (onset delay is noted to worsen from initiation at valleculae to pyriform sinus as patient continues to eat/drink or as verbal/visual distractions are introduced), and reduced epiglottic inversion, resulting in flash penetration of less viscous material, moderate vallecular and trace pyriform sinus residue of more viscous textures, which is cleared with subsequent swallow. Patient occasionally noted to utilize chin tuck independently during study today, which did not appear to improve swallow efficiency nor have any change with regard to swallow safety. Swallow safety is preserved per results of today's study, however risk management should be noted to reduce risks of airway compromise given report of choking episode(s) in current environment; swallow efficiency is impaired. Patient appears to be at low risk for potential aspiration PNA, pulmonary compromise and low risk for malnutrition, low risk for dehydration. Diet modification is indicated as outlined below, to reduce effort/energy requirements during mealtimes. Swallow prognosis is good given age, cognitive-linguistic abilities, and level of motivation to participate in skilled therapy, and is pending patient/caregiver training in risk management as outlined. Patient appears to be a good candidate for behavioral swallow rehabilitation. PLAN: Diet recommendation: IDDSI Level 6-Soft & Bite-Sized Solids, 0-Thin Liquids / Patient is likely able to safely tolerate Level 7-Regular/Easy to Chew Solids with supervision and cues for use of compensatory strategies as outlined below. Please see further details at [email or web address] Diet texture modification is per patient's preference; please adjust diet textures at patient's discretion & continued collaboration with care team. Risk Management: Reduce rate of intake Alternate solids/liquids as able (to encourage clearance of pharyngeal stasis/residue and assist in behavioral modification of reducing rate of intake) Postural support during mealtimes as tolerated Reduce environmental distractions (verbal/visual) during mealtimes Small bites/small sips Behavioral reflux precautions, including upright position during + 90 mins after meals. Control risk factors for aspiration pneumonia via (a) thorough oral hygiene & (b) maintaining physical mobility as tolerated Specialist referrals: May consider GI consult to further assess patient's report of ongoing esophageal stasis concerns Ancillary tests: Consider Barium Esophagram and/or High Resolution Esophageal Manometry Therapy: Recommend subsequent outpatient session with PUBLIC WORKS TECHNICIAN to review results of today's exam and develop treatment plan as appropriate. Goal: TBD pending patient/caregiver interview Follow-up exam: N/A; patient is recommended to attend follow up visit with PUBLIC WORKS TECHNICIAN Thank you for allowing me to take part in this patient's care. Please feel free to contact me with any questions/concerns. Devika Avalos MA CCC-PUBLIC WORKS TECHNICIAN Speech Language Pathologist [phone] Coding CPT Codes MOTION FLUOROSCOPY/SWALLOW - [id number] ([id number])
--- NOTE | 2021-03-30 14:40 | DI.RAD_ITS ---
Exam(s) RF MODIFIED SPEECH BA SWALLOW TECHNIQUE: Modified barium swallow was performed in conjunction with speech pathology. CONTRAST MATERIAL: Multiple consistencies of oral barium contrast was administered. COMPARISON: No exams were available for comparison FINDINGS: Note that this is not a dedicated esophagram, distal esophagus not evaluated. There is no evidence of aspiration or penetration . Speech pathology report to follow. . .. Fluoro t noreen 69 seconds IMPRESSION: No evidence of aspiration or penetration. RADIATION DOSE DELIVERED: micky Alaniz=2.5 mGy
[2021-03-30] MEDS: Barium Sulfate Oral Paste 40% W/V 230 ML TUBE 20 ML PO (14:48)
[2021-03-30] MEDS: Barium Sulfate 81% w/w for Oral Suspension 148 GM BTL 60 GM PO (14:49)
== END 2021-03-30 02:04 ==
PROVIDERS: PCP Nurse Practitioner Family; Visit Provider Speech-Language Pathologist
DX: R09.89 Other specified symptoms and signs involving the circulatory and respiratory systems (principal); R13.12 Dysphagia, oropharyngeal phase
CPT/HCPCS: 74221

== ENCOUNTER 2021-04-07 10:49 | Outpatient (REF) | payer MEDICARE, BC, SELFPAY ==
[2021-04-08 16:28] LABS: COVID-19 RT-PCR UVMMC Result Positive (Negative)
== END 2021-04-07 10:50 | disposition home or self-care (01) ==
LOC: NCHCN 10:49
PROVIDERS: PCP Nurse Practitioner Family; Visit Provider Nurse Practitioner Family
DX: Z20.822 Contact with and (suspected) exposure to COVID-19 (principal)
CPT/HCPCS: U0003; U0005

== ENCOUNTER → 2021-05-06 13:05 | Outpatient (BNVA) | payer MEDICARE, BC, SELFPAY | PROVIDERS: PCP Nurse Practitioner Family; Referring Provider Nurse Practitioner Family; Visit Provider Nurse Practitioner Gerontology | DX: K59.00 Constipation, unspecified (principal); R32 Unspecified urinary incontinence | CPT/HCPCS: 99215 ==

== ENCOUNTER → 2021-06-30 09:01 | Outpatient (BNVA) | payer MEDICARE, BC, SELFPAY | PROVIDERS: PCP Nurse Practitioner Family; Referring Provider Nurse Practitioner Family; Visit Provider Nurse Practitioner Gerontology | DX: R32 Unspecified urinary incontinence (principal); K59.00 Constipation, unspecified; Z79.899 Other long term (current) drug therapy | CPT/HCPCS: 99213 ==

== ENCOUNTER 2021-08-04 17:46 | Outpatient (REF) | payer MEDICARE, BC, SELFPAY ==
[2021-08-04 22:11] LABS: ALT 54 U/L (14-59); AST 28 U/L (15-37); Alkaline Phosphatase 112 U/L (46-116); Anion Gap 8.9 mmol/L (3-11); BUN 15 mg/dL (7-18); Bilirubin, Total 0.3 mg/dL (0.2-1.0); CO2 28.1 mmol/L (21.0-32.0); CREATININE 0.8 mg/dL (0.55-1.02); Calcium 9.2 mg/dL (8.5-10.1); Chloride 102 mmol/L (98-107); Glucose 89 mg/dL (74-106); Magnesium 2.3 mg/dL (1.8-2.4); Potassium 4.9 mmol/L (3.5-5.1); Sodium 139 mmol/L (136-145); Total Protein 7.6 g/dL (6.4-8.2); Vitamin B12 493 pg/mL (193-986)
[2021-08-06 00:19] LABS: Vitamin D 25 Total 31.7 ng/mL (30-100)
[2021-08-06 16:29] LABS: Levetiracetam 83.1 mcg/mL
== END 2021-08-04 17:47 | disposition home or self-care (01) ==
LOC: NCHCN 17:46
PROVIDERS: PCP Nurse Practitioner Family; Visit Provider Nurse Practitioner Family
DX: M81.0 Age-related osteoporosis without current pathological fracture (principal); G40.909 Epilepsy, unspecified, not intractable, without status epilepticus; Z51.81 Encounter for therapeutic drug level monitoring; Z79.899 Other long term (current) drug therapy; I10 Essential (primary) hypertension; K20.90 Esophagitis, unspecified without bleeding
CPT/HCPCS: 80053; 82306; 80177; 82607; 83735

== ENCOUNTER → 2021-08-11 13:07 | Outpatient (BNVA) | payer MEDICARE, BC, SELFPAY | PROVIDERS: PCP Nurse Practitioner Family; Referring Provider Nurse Practitioner Family; Visit Provider Psychiatry & Neurology Neurology | DX: G80.1 Spastic diplegic cerebral palsy (principal); G40.209 Localization-related (focal) (partial) symptomatic epilepsy and epileptic syndromes with complex partial seizures, not intractable, without status epilepticus; F81.9 Developmental disorder of scholastic skills, unspecified | CPT/HCPCS: 99213 ==

== ENCOUNTER 2021-10-06 10:45 | Outpatient (REF) | payer MEDICARE, BC, SELFPAY | END 2021-10-06 10:46 | disposition home or self-care (01) | LOC: NCHCN 10:45 | PROVIDERS: PCP Nurse Practitioner Family; Visit Provider Nurse Practitioner Family | DX: R35.0 Frequency of micturition (principal) | CPT/HCPCS: 87086 ==

== ENCOUNTER 2021-12-17 12:23 | Outpatient (REF) | payer MEDICARE, BC, SELFPAY | END 2021-12-17 12:24 | disposition home or self-care (01) | LOC: NCHCN 12:23 | PROVIDERS: PCP Nurse Practitioner Family; Visit Provider Nurse Practitioner Family | DX: R25.0 Abnormal head movements (principal); Z87.440 Personal history of urinary (tract) infections | CPT/HCPCS: 87086 ==

== ENCOUNTER → 2021-12-29 09:01 | Outpatient (BNVA) | payer MEDICARE, BC, SELFPAY | PROVIDERS: PCP Nurse Practitioner Family; Referring Provider Nurse Practitioner Family; Visit Provider Nurse Practitioner Gerontology | DX: R32 Unspecified urinary incontinence (principal); K59.00 Constipation, unspecified | CPT/HCPCS: 51798; 81003; 99214 ==

== ENCOUNTER 2022-01-21 18:33 | Outpatient (REF) | payer MEDICARE, BC, SELFPAY ==
[2022-01-21 17:12] LABS: Bilirubin Negative (Negative); Blood Negative (Negative); Clarity Sl Cloudy (Clear); Glucose Negative (Negative); Ketones Negative (Negative); Leukocyte Esterase Moderate (Negative); Nitrite Negative (Negative); Urobilinogen 0.2 EU/dL (Up TO 0.2)
[2022-01-21 17:24] LABS: Bacteria Moderate HPF (Negative); C & S Indicated? C&S Done As Ordered; Crystals Negative HPF (Negative); Epithelial Cells Moderate HPF (Negative); Mucus Negative (Negative); RBC 0-2 HPF (0-2)
== END 2022-01-21 18:34 | disposition home or self-care (01) ==
LOC: NCHCN 18:33
PROVIDERS: PCP Nurse Practitioner Family; Visit Provider Nurse Practitioner Family
DX: R35.0 Frequency of micturition (principal)
CPT/HCPCS: 81003; 81015; 87086

== ENCOUNTER 2022-06-15 16:50 | Outpatient (REF) | payer MEDICARE, BC, SELFPAY ==
[2022-06-15 15:34] LABS: Vitamin D 25 Total 35.4 ng/mL (30-100)
[2022-06-15 15:37] LABS: Anion Gap 10.6 mmol/L (3-11); BUN 20 mg/dL (7-18); CO2 26.4 mmol/L (21.0-32.0); CREATININE 0.7 mg/dL (0.55-1.02); Calcium 9.3 mg/dL (8.5-10.1); Chloride 102 mmol/L (98-107); Estimated GFR 96.52 (mL/min/1.73m2); Glucose 119 mg/dL (74-106); Potassium 4.2 mmol/L (3.5-5.1); Sodium 139 mmol/L (136-145); TSH (W/Ref FT4) 0.36 uIU/mL (0.36-3.74); Vitamin B12 528 pg/mL (193-986)
[2022-06-15 16:01] LABS: PHOSPHORUS 4.6 mg/dL (2.6-4.7)
== END 2022-06-15 16:51 | disposition home or self-care (01) ==
LOC: NCHCN 16:50
PROVIDERS: PCP Nurse Practitioner Family; Visit Provider Nurse Practitioner Family
DX: R13.12 Dysphagia, oropharyngeal phase (principal); M81.0 Age-related osteoporosis without current pathological fracture; R35.0 Frequency of micturition; I10 Essential (primary) hypertension; R41.89 Other symptoms and signs involving cognitive functions and awareness; F41.9 Anxiety disorder, unspecified; R56.9 Unspecified convulsions
CPT/HCPCS: 80048; 82306; 82607; 83735; 84100; 84443

== ENCOUNTER → 2022-06-30 10:31 | Outpatient (BNVA) | payer MEDICARE, BC, SELFPAY | PROVIDERS: PCP Nurse Practitioner Family; Referring Provider Nurse Practitioner Family; Visit Provider Nurse Practitioner Gerontology | DX: N39.41 Urge incontinence (principal); Z87.440 Personal history of urinary (tract) infections; K59.00 Constipation, unspecified | CPT/HCPCS: 51798; 99214 ==

== ENCOUNTER 2022-07-01 01:16 | Outpatient (CLI) | payer MEDICARE, BC, SELFPAY ==
--- NOTE | 2022-07-01 11:26 | DI.MAMMO_ITS ---
Exam(s) MG MAMMO SCREENING 60 MIN DUR EXAM: MG MAMMO SCREENING 60 MIN DUR CLINICAL HISTORY: SCREENING, Z12.31. TECHNIQUE: Bilateral full field digital CC and MLO mammographic images were obtained with 3D tomosyn thesis and utilizing computer aided detection (CAD). COMPARISON: Prior mammograms were reviewed. FINDINGS: Limited study. Right MLO view was not able to be performed because of the patient's condition and ap parently unable to raise the arm. However, there has been no significant change in the appearance and distribution of the fibroglandula r tissue. There are no CAD designations. There are no new spiculated masses nor malignant appearing microcalcification groups. There is no new significant architectural distortion nor skin thickening-retraction. IMPRESSION: No radiographic evidence of malignancy. BI-RADS Category 1 - Negative Breast Density - Category B - Scattered areas of fibroglandular density Breast density Category C or D implies that the patient has dense breast tissue. Dense breast tissue can make it harder to find cancer on a mammogram. Dense breast tissue is also associated with an incr eased risk of breast cancer. This information about the result of the mammogram report was provided to the patient to raise their awareness. Use this report when you speak with the patient about their risks for breast cancer, which includes their family history. At that time, you may recommend additional screening tests (Ultrasoun d or MRI) as these tests may add significant information. A negative radiographic report should not delay biopsy if a dominant or clinically suspicious mass is present. Up to ten percent of cancers are not identified on mammography. A negative report may reinforce clinical impression. Adenosis and dense breasts may obscure an underlying neoplasm. False positive reports average 6 to 10%. Patient will receive a letter notifying them of these results.
== END 2022-07-01 01:36 ==
LOC: DI 01:17
PROVIDERS: PCP Nurse Practitioner Family; Visit Provider Nurse Practitioner Family
DX: Z12.31 Encounter for screening mammogram for malignant neoplasm of breast (principal)
CPT/HCPCS: 77063; 77067

== ENCOUNTER → 2022-08-10 12:37 | Outpatient (BNVA) | payer MEDICARE, BC, SELFPAY | PROVIDERS: PCP Nurse Practitioner Family; Visit Provider Psychiatry & Neurology Neurology | DX: G80.1 Spastic diplegic cerebral palsy (principal); G40.209 Localization-related (focal) (partial) symptomatic epilepsy and epileptic syndromes with complex partial seizures, not intractable, without status epilepticus; F81.9 Developmental disorder of scholastic skills, unspecified | CPT/HCPCS: 99215 ==

== ENCOUNTER 2022-09-15 17:09 | Outpatient (REF) | payer MEDICARE, BC, SELFPAY | END 2022-09-15 17:10 | disposition home or self-care (01) | LOC: NCHCN 17:09 | PROVIDERS: PCP Nurse Practitioner Family; Visit Provider Nurse Practitioner Family | DX: Z87.440 Personal history of urinary (tract) infections (principal); R82.998 Other abnormal findings in urine | CPT/HCPCS: 87086 ==

== ENCOUNTER 2022-09-27 01:55 | Outpatient (CLI) | payer MEDICARE, BC, SELFPAY ==
--- NOTE | 2022-09-27 07:10 | DI.MRI_ITS ---
Exam(s) MR CERVICAL SPINE WO EXAM: MR CERVICAL SPINE WO CLINICAL HISTORY: worsened imbalance; +Babinski bilaterally,hyperreflexia,r29.2,r26.9 TECHNIQUE: Multiplanar multisequence MRI of the cervical spine was performed without intravenous con trast. COMPARISON: No exams were available for comparison FINDINGS: Examination limited by motion artifact. CERVICOMEDULLARY JUNCTION: Intact with no evidence of cerebellar tonsillar ectopia. No obvious abnor mality of the odontoid process. No evidence of Chiari 1 malformation. 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 There are no prior brain imaging studies in our PACS. CERVICAL SPINAL CORD: There is no obvious abnormal signal in the cervical spinal cord and no evidence of focal cord atrophy nor focal cord swelling. OSSEOUS:There are no cervical fractures evident. No significant osseous lesions in the cervical vert ebrae. Cervical curvature is relatively maintained. INDIVIDUAL LEVELS: C2-3: Mild annular bulging. No prominent disc herniation. Central canal dimensions are lower normal . Increased signal noted in the left facet joint synovial cavity. There is no degenerative synovial cyst coming off of this joint. Similar findings not seen in the right facet joint at this level. N o prominent foraminal stenosis at this level. C3-4: Relatively preserved disc height. Annular bulging evident but without a dominant disc herniati on. Central canal dimensions within normal limits. Mild degenerative changes right facet joint incr eased synovial signal left facet joint. Mild bilateral foraminal stenosis. C4-5: Moderate-advanced disc space narrowing evident. Mild annular bulging, more so right than left where there is right-sided Luschka joint-disc complex. There is mild facet arthropathy bilaterally. Mild foraminal stenosis on the right. No obvious foraminal stenosis on the left. C5-6: Advanced chronic disc space narrowing evident at this level. Bilateral Luschka joint osteophyt es, slightly larger on the right side. Annular bulging but without a dominant disc herniation. Cent ral canal dimensions are lower normal. Mild bilateral foraminal stenosis evident. Moderate degenera tive facet arthropathy on the left side and mild facet joint degenerative changes on the right side. Disc-osteophyte complex on the right slightly larger than the left. C6-7: This level also exhibits chronic disc space narrowing. Mild annular bulging without a distinct focal disc herniation nor central canal stenosis. Small disc-osteophyte complexes bilaterally with mild bilateral foraminal stenosis. This level exhibits no significant facet arthropathy. C7-T1: No disc herniation nor central canal stenosis. Mild moderate facet arthropathy bilaterally at this level.Mild bilateral foraminal stenosis. IMPRESSION: 1. Multilevel findings as described individually above. 2. However, there is no large dominant disc herniation nor prominent central spinal canal stenosis. 3. There is multilevel bilateral mild foraminal stenosis which is due to a combination of bilateral L uschka joint osteophytes and facet arthropathy. Incidentally noted is large poor encephalic involvement of the left side of the brain seen in the per ipheral aspect of the field of view only partially included. There are no brain imaging studies in [facility] PACS system. If clinically indicated further study with MRI of the brain can be performed. No evidence of Chiari malformation. No cerebellar tonsillar ectopia. DATA REPOSITORY:
--- NOTE | 2022-09-27 07:10 | DI.MRI_ITS ---
Exam(s) MR BRAIN WO EXAM: MR BRAIN WO CLINICAL HISTORY: Increasing behaviors/agitation,cerebral palsy,abnl of gait,r46.89,g80.9 TECHNIQUE: Multiplanar multisequence MRI of the brain was performed. COMPARISON: No prior exams were available for comparison FINDINGS: CEREBRAL PARENCHYMA: There is gross asymmetry in the appearance of the brain. The left lateral ventricle is grossly enlar ged, filling almost the entire jose angel cranium with thin the cortical mantle. The lateral ventricle is 7.5 cm wide. There is mild shift of midline structures towards the opposite side. Size of the oppos ite-right lateral ventricle is upper normal. The significantly enlarged left lateral ventricle is in direct communication with the 3rd ventricle. Fourth ventricle is not enlarged. There is significant attenuation of the corpus callosum. No significant brain edema. No abnormal signal in the cerebell ar hemispheres nor within the davis and midbrain. No restricted diffusion. No cerebellar tonsillar e ctopia. Pituitary gland unremarkable. Paranasal sinuses are clear as are the mastoid air cells. FLOW VOIDS: The expected flow void are noted. No evidence of obvious aneurysm nor obvious vascular ma lformation. PARANASAL SINUSES: The visualized paranasal sinuses appear unremarkable. No obvious finding ORBITS: No obvious findings. IMPRESSION: Grossly enlarged left lateral ventricle with significant significant thinning of the ipsilateral jamal ical mantle. Mild shift of midline to opposite side. No brain edema. No significant enlargement of the 4th ventricle nor other findings in the posterior fossa and no evidence of cerebellar tonsillar ectopia. There is no evidence of surrounding brain edema. DATA REPOSITORY:
== END 2022-09-27 02:15 ==
LOC: DI 01:55
PROVIDERS: PCP Nurse Practitioner Family; Visit Provider Psychiatry & Neurology Neurology
DX: R26.89 Other abnormalities of gait and mobility (principal); R29.2 Abnormal reflex; M50.321 Other cervical disc degeneration at C4-C5 level; M50.322 Other cervical disc degeneration at C5-C6 level; M50.323 Other cervical disc degeneration at C6-C7 level; M47.812 Spondylosis without myelopathy or radiculopathy, cervical region; G80.9 Cerebral palsy, unspecified; R46.89 Other symptoms and signs involving appearance and behavior; R45.1 Restlessness and agitation; R94.02 Abnormal brain scan
CPT/HCPCS: 70551; 72141

== ENCOUNTER → 2022-10-12 09:01 | Outpatient (BNVA) | payer MEDICARE, BC, SELFPAY | PROVIDERS: PCP Nurse Practitioner Family; Referring Provider Nurse Practitioner Family; Visit Provider Psychiatry & Neurology Neurology | DX: G80.1 Spastic diplegic cerebral palsy (principal); R26.89 Other abnormalities of gait and mobility; G40.209 Localization-related (focal) (partial) symptomatic epilepsy and epileptic syndromes with complex partial seizures, not intractable, without status epilepticus; F81.9 Developmental disorder of scholastic skills, unspecified | CPT/HCPCS: 99214 ==

== ENCOUNTER 2022-11-25 02:37 | Outpatient (CLI) | payer MEDICARE, BC, SELFPAY ==
--- NOTE | 2022-11-25 | DI.DEXA_ITS ---
Exam(s) XR DEXA BONE DENSITY W/WO TRAE EXAM: XR DEXA BONE DENSITY W/WO TRAE CLINICAL HISTORY: OSTEOPOROSIS, M81.0 TECHNIQUE: Routine DEXA evaluation of the lumbar spine, hip, or forearm. COMPARISON: CR XR DEXA BONE DENSITY W/WO TRAE from 09/04/2020 FINDINGS: Performed on a HoloXirrus unit. Lateral image: No compression fracture evident. Lumbar Spine total T-score: -0.5. Prior 2020 reading was -1.3 Hip total T-score:-1.3. Prior reading in 2020 was -1.8 Independent reading at the level of the femoral neck yields T-score of -2.6 Forearm total T-score: Not scanned IMPRESSION: Bone mineral density measures in the osteopenia-osteoporosis range. Fracture risk is moderate-high. Note: Any spine fracture indicates 5x risk for subsequent spine fracture and 2x risk for subsequent h ip fracture. World Health Organization criteria for BMD interpretation classify patients: Normal...... T- Score at or above -1.0 Osteopenic... T- Score between -1.0 and -2.5 Osteoporosis... T-Score at or below -2.5
== END 2022-11-25 02:57 ==
LOC: DI 02:39
PROVIDERS: PCP Nurse Practitioner Family; Visit Provider Nurse Practitioner Family
DX: M81.0 Age-related osteoporosis without current pathological fracture (principal); Z13.820 Encounter for screening for osteoporosis
CPT/HCPCS: 77080

== ENCOUNTER → 2022-12-13 09:22 | Outpatient (BNVA) | payer MEDICARE, BC, SELFPAY | PROVIDERS: PCP Nurse Practitioner Family; Referring Provider Nurse Practitioner Family; Visit Provider Psychiatry & Neurology Neurology | DX: G80.1 Spastic diplegic cerebral palsy (principal); G40.209 Localization-related (focal) (partial) symptomatic epilepsy and epileptic syndromes with complex partial seizures, not intractable, without status epilepticus; F81.9 Developmental disorder of scholastic skills, unspecified | CPT/HCPCS: 99214 ==

== ENCOUNTER → 2022-12-29 10:51 | Outpatient (BNVA) | payer MEDICARE, BC, SELFPAY | PROVIDERS: PCP Nurse Practitioner Family; Visit Provider Nurse Practitioner Gerontology | DX: K59.00 Constipation, unspecified (principal); R32 Unspecified urinary incontinence; Z87.440 Personal history of urinary (tract) infections | CPT/HCPCS: 51798; 99213 ==

== ENCOUNTER 2023-01-19 14:07 | Outpatient (REF) | payer MEDICARE, BC, SELFPAY | END 2023-01-19 14:08 | disposition home or self-care (01) | LOC: NCHCN 14:07 | PROVIDERS: PCP Nurse Practitioner Family; Visit Provider Nurse Practitioner Family | DX: R32 Unspecified urinary incontinence (principal) | CPT/HCPCS: 87086 ==

== ENCOUNTER → 2023-02-15 09:17 | Outpatient (BNVA) | payer MEDICARE, BC, SELFPAY | PROVIDERS: PCP Nurse Practitioner Family; Referring Provider Nurse Practitioner Family; Visit Provider Psychiatry & Neurology Neurology | DX: G80.1 Spastic diplegic cerebral palsy (principal); R26.89 Other abnormalities of gait and mobility; G40.209 Localization-related (focal) (partial) symptomatic epilepsy and epileptic syndromes with complex partial seizures, not intractable, without status epilepticus; F81.9 Developmental disorder of scholastic skills, unspecified | CPT/HCPCS: 99214 ==

== ENCOUNTER → 2023-05-25 09:43 | Outpatient (BNVA) | payer MEDICARE, BC, SELFPAY | PROVIDERS: PCP Nurse Practitioner Family; Referring Provider Nurse Practitioner Family; Visit Provider Psychiatry & Neurology Neurology | DX: G80.1 Spastic diplegic cerebral palsy (principal); R26.9 Unspecified abnormalities of gait and mobility; G40.209 Localization-related (focal) (partial) symptomatic epilepsy and epileptic syndromes with complex partial seizures, not intractable, without status epilepticus; F81.9 Developmental disorder of scholastic skills, unspecified | CPT/HCPCS: 99214 ==

== ENCOUNTER 2023-06-01 13:58 | Outpatient (REF) | payer MEDICARE, BC, SELFPAY ==
[2023-06-01 15:07] LABS: Bilirubin Negative (Negative); Blood Negative (Negative); Clarity Sl Cloudy (Clear); Glucose Negative (Negative); Ketones Negative (Negative); Leukocyte Esterase Large (Negative); Nitrite Negative (Negative); Urobilinogen 0.2 mg/dL (Up to 0.2); pH 7.5 (5-8)
[2023-06-01 15:20] LABS: Bacteria Few HPF (Negative); Casts Negative LPF (Negative); Crystals Negative HPF (Negative); Epithelial Cells Few HPF (Negative); Mucus Negative (Negative); RBC 0-2 HPF (0-2)
[2023-06-01 15:21] LABS: C & S Indicated? Yes
== END 2023-06-01 13:59 | disposition home or self-care (01) ==
LOC: NCHCN 13:58
PROVIDERS: PCP Nurse Practitioner Family; Visit Provider Nurse Practitioner Family
DX: N39.0 Urinary tract infection, site not specified (principal)
CPT/HCPCS: 81003; 81015; 87086

== ENCOUNTER 2023-06-13 15:58 | Outpatient (REF) | payer MEDICARE, BC, SELFPAY ==
[2023-06-13 22:17] LABS: ALT 43 U/L (14-59); AST 24 U/L (15-37); Albumin 3.7 g/dL (3.4-5.0); Alkaline Phosphatase 122 U/L (46-116); Anion Gap 8.4 mmol/L (3-11); BUN 21 mg/dL (7-18); Bilirubin, Total 0.4 mg/dL (0.2-1.0); CO2 30.6 mmol/L (21.0-32.0); CREATININE 0.9 mg/dL (0.55-1.02); Calcium 9.3 mg/dL (8.5-10.1); Calculated LDL 110 mg/dL (<100); Chloride 101 mmol/L (98-107); Cholesterol 202 mg/dL (<200); Estimated GFR 70.95 (mL/min/1.73m2); Glucose 93 mg/dL (74-106); HDL Cholesterol 72 mg/dL (40-60); Potassium 4.3 mmol/L (3.5-5.1); Sodium 140 mmol/L (136-145); Total Protein 7.7 g/dL (6.4-8.2); Triglyceride 104 mg/dL (<150); Vitamin B12 460 pg/mL (193-986)
[2023-06-14 15:28] LABS: GGT 57 U/L (5-55)
[2023-06-14 15:53] LABS: Vitamin D 25 Total 37.4 ng/mL (30-100)
== END 2023-06-13 15:59 | disposition home or self-care (01) ==
LOC: NCHCN 15:58
PROVIDERS: PCP Nurse Practitioner Family; Visit Provider Nurse Practitioner Family
DX: I10 Essential (primary) hypertension (principal); R74.8 Abnormal levels of other serum enzymes; R26.89 Other abnormalities of gait and mobility; K76.89 Other specified diseases of liver; G80.9 Cerebral palsy, unspecified; Z79.899 Other long term (current) drug therapy
CPT/HCPCS: 80053; 80061; 82306; 82607; 82977

== ENCOUNTER → 2023-07-05 01:28 | Outpatient (CLI) | payer MEDICARE, BC, SELFPAY ==
--- NOTE | 2023-07-05 | DI.US_ITS ---
Exam(s) US ABDOMEN LIMITED EXAM: US ABDOMEN LIMITED CLINICAL HISTORY: OTHER DISEASES OF LIVER K76.89 ABNL LIVER FUNCTIONS R74.8 TECHNIQUE: Ultrasound abdomen performed using standard protocol. COMPARISON: No exams were available for comparison FINDINGS: Exam is limited due to patient's inability to follow instructions. PANCREAS: Normal where visualized. LIVER: Normal. Hepatopetal flow in the Portal Vein. The liver measures in 13.5 cm length. GALLBLADDER:Cholelithiasis. No evidence of wall thickening. No pericholecystic fluid identified. BILIARY SYSTEM: Common bile duct measures < 7 mm. No intrahepatic biliary ductal dilation. HERNANDEZ'S SIGN: Negative. RIGHT KIDNEY: Kidney is normal in size. No evidence of renal calculi. No evidence of hydronephrosis. No renal mass or cyst identified. ASCITES: None seen. IMPRESSION: Cholelithiasis. No sonographic evidence to suggest acute cholecystitis. DATA REPOSITORY:
== END ==
PROVIDERS: PCP Nurse Practitioner Family; Visit Provider Nurse Practitioner Family
DX: K80.00 Calculus of gallbladder with acute cholecystitis without obstruction (principal)
CPT/HCPCS: 76705

== ENCOUNTER → 2023-07-25 14:59 | Outpatient (BNVA) | payer MEDICARE, BC, SELFPAY | PROVIDERS: PCP Nurse Practitioner Family; Referring Provider Nurse Practitioner Family; Visit Provider Nurse Practitioner Gerontology | DX: K59.00 Constipation, unspecified (principal); R32 Unspecified urinary incontinence | CPT/HCPCS: 51798; 99214 ==

== ENCOUNTER 2023-07-25 18:25 | Outpatient (REF) | payer MEDICARE, BC, SELFPAY | END 2023-07-25 18:26 | disposition home or self-care (01) | LOC: NCHCN 18:25 | PROVIDERS: PCP Nurse Practitioner Family; Visit Provider Nurse Practitioner Family | DX: R82.998 Other abnormal findings in urine (principal); Z87.440 Personal history of urinary (tract) infections | CPT/HCPCS: 87086 ==

== ENCOUNTER → 2023-10-24 09:38 | Outpatient (BNVA) | payer MEDICARE, BC, SELFPAY | PROVIDERS: PCP Nurse Practitioner Family; Referring Provider Nurse Practitioner Family; Visit Provider Psychiatry & Neurology Neurology | DX: G80.1 Spastic diplegic cerebral palsy (principal); R26.9 Unspecified abnormalities of gait and mobility; G40.209 Localization-related (focal) (partial) symptomatic epilepsy and epileptic syndromes with complex partial seizures, not intractable, without status epilepticus; R46.89 Other symptoms and signs involving appearance and behavior | CPT/HCPCS: 99213 ==

== ENCOUNTER → 2024-01-16 14:10 | Outpatient (BNVA) | payer MEDICARE, BC, SELFPAY | PROVIDERS: PCP Nurse Practitioner Family; Referring Provider Nurse Practitioner Family; Visit Provider Nurse Practitioner Gerontology | DX: K59.00 Constipation, unspecified (principal); R32 Unspecified urinary incontinence | CPT/HCPCS: 51798; 99213 ==

== ENCOUNTER → 2024-02-08 08:11 | Outpatient (BNVA) | payer MEDICARE, BC, SELFPAY | PROVIDERS: PCP Nurse Practitioner Family; Referring Provider Nurse Practitioner Family; Visit Provider Psychiatry & Neurology Neurology | DX: G80.1 Spastic diplegic cerebral palsy (principal); R26.9 Unspecified abnormalities of gait and mobility; G40.209 Localization-related (focal) (partial) symptomatic epilepsy and epileptic syndromes with complex partial seizures, not intractable, without status epilepticus; R46.89 Other symptoms and signs involving appearance and behavior | CPT/HCPCS: 99213 ==

== ENCOUNTER 2024-04-24 23:59 | Outpatient (REF) | payer MEDICARE, BC, SELFPAY | END 2024-04-25 | disposition home or self-care (01) | LOC: NCHCN 23:59 | PROVIDERS: PCP Nurse Practitioner Family; Visit Provider Nurse Practitioner Family | DX: F41.9 Anxiety disorder, unspecified (principal) | CPT/HCPCS: 84443 ==

== ENCOUNTER → 2024-05-08 09:39 | Outpatient (BNVA) | payer MEDICARE, BC, SELFPAY | PROVIDERS: PCP Nurse Practitioner Family; Visit Provider Psychiatry & Neurology Neurology | DX: G80.1 Spastic diplegic cerebral palsy (principal); R26.9 Unspecified abnormalities of gait and mobility; G40.209 Localization-related (focal) (partial) symptomatic epilepsy and epileptic syndromes with complex partial seizures, not intractable, without status epilepticus; R46.89 Other symptoms and signs involving appearance and behavior | CPT/HCPCS: 99213 ==

== ENCOUNTER 2024-06-05 15:25 | Outpatient (REF) | payer MEDICARE, BC, SELFPAY ==
[2024-06-05 21:40] LABS: Bilirubin Negative (Negative); Blood Negative (Negative); Clarity Clear (Clear); Glucose Negative (Negative); Ketones Negative (Negative); Leukocyte Esterase Trace (Negative); Nitrite Negative (Negative); Specific Gravity 1.015 (1.005-1.025); Urobilinogen 0.2 mg/dL (Up to 0.2); pH 6.5 (5-8)
[2024-06-05 21:55] LABS: COMMENT (LAB VIEW ONLY) 35.46 mg/dL; Microalb ug/mg Crea 10.2 ug/mg Cr
[2024-06-05 21:57] LABS: Bacteria Rare HPF (Negative); C & S Indicated? No; Casts Negative LPF (Negative); Crystals Negative HPF (Negative); Epithelial Cells Few HPF (Negative); Mucus Negative (Negative); RBC Negative HPF (0-2); WBC 0-2 HPF (0-5)
== END 2024-06-05 15:26 | disposition home or self-care (01) ==
LOC: NCHCN 15:25
PROVIDERS: PCP Nurse Practitioner Family; Visit Provider Nurse Practitioner Family
DX: I10 Essential (primary) hypertension (principal); R32 Unspecified urinary incontinence; R82.89 Other abnormal findings on cytological and histological examination of urine
CPT/HCPCS: 81003; 81015; 82043; 82570

== ENCOUNTER 2024-06-14 08:32 | Outpatient (REF) | payer MEDICARE, BC, SELFPAY ==
[2024-06-14 15:29] LABS: ALT 40 U/L (14-59); AST 23 U/L (15-37); Albumin 3.6 g/dL (3.4-5.0); Alkaline Phosphatase 128 U/L (46-116); Anion Gap 8.6 mmol/L (3-11); BUN 17 mg/dL (7-18); Bilirubin, Total 0.36 mg/dL (0.2-1.0); CO2 30.4 mmol/L (21.0-32.0); CREATININE 0.9 mg/dL (0.55-1.02); Calculated LDL 104 mg/dL (<100); Chloride 106 mmol/L (98-107); Cholesterol 198 mg/dL (<200); Estimated GFR 70.51 (mL/min/1.73m2); Glucose 89 mg/dL (74-106); HDL Cholesterol 73 mg/dL (40-60); Magnesium 2.3 mg/dL (1.8-2.4); Potassium 4.6 mmol/L (3.5-5.1); Sodium 145 mmol/L (136-145); Total Protein 7.2 g/dL (6.4-8.2); Triglyceride 107 mg/dL (<150); Vitamin B12 486 pg/mL (193-986); Vitamin D 25 Total 43.7 ng/mL (30-100)
[2024-06-14 15:40] LABS: GGT 62 U/L; PHOSPHORUS 4.2 mg/dL (2.6-4.7)
== END 2024-06-14 08:33 | disposition home or self-care (01) ==
LOC: NCHCN 08:32
PROVIDERS: PCP Nurse Practitioner Family; Visit Provider Nurse Practitioner Family
DX: K76.89 Other specified diseases of liver (principal)
CPT/HCPCS: 80053; 80061; 82306; 82607; 82977; 83735; 84100

== ENCOUNTER 2024-07-11 02:16 | Outpatient (CLI) | payer MEDICARE, BC, SELFPAY ==
--- NOTE | 2024-07-11 11:23 | DI.MAMMO_ITS ---
Exam(s) MG MAMMO SCREENING 60 MIN DUR EXAM: MG MAMMO SCREENING 60 MIN DUR CLINICAL HISTORY: Screening, Z12.31; pt has cerebral palsy TECHNIQUE: Mammograms were interpreted according to the usual protocol including computer analysis w ith CAD system, tomosynthesis and C-view imaging. COMPARISON: MG MG MAMMO SCREENING 60 MIN DUR from 09/04/2020 MG MG MAMMO SCREENING 60 MIN DUR from 07/01/2022 FINDINGS: Positioning is suboptimal due to patient condition. The breasts are composed of scattered fibroglandular densities, Breast Density category B. No suspicious masses or suspicious microcalcifications are seen. No skin thickening or abnormal axillary lymph nodes are seen. There has been no significant change from prior exams. IMPRESSION: BI-RADS Category 1, Negative mammogram Yearly screening mammography is recommended. Breast Density - Category B, scattered fibroglandular densities. A negative radiographic report should not delay biopsy if a dominant or clinically suspicious mass is present. Up to ten percent of cancers are not identified on mammography. A negative report may reinforce clinical impression. Adenosis and dense breasts may obscure an underlying neoplasm. False positive reports average 6 to 10%. Patient will receive a letter notifying them of these results.
== END 2024-07-11 02:36 ==
LOC: DI 02:16
PROVIDERS: PCP Nurse Practitioner Family; Visit Provider Nurse Practitioner Family
DX: Z12.31 Encounter for screening mammogram for malignant neoplasm of breast (principal); R92.323 Mammographic fibroglandular density, bilateral breasts
CPT/HCPCS: 77063; 77067

== ENCOUNTER → 2024-07-16 14:23 | Outpatient (BNVA) | payer MEDICARE, BC, SELFPAY | PROVIDERS: PCP Nurse Practitioner Family; Visit Provider Nurse Practitioner Gerontology | DX: K59.00 Constipation, unspecified (principal); R32 Unspecified urinary incontinence | CPT/HCPCS: 51798; 99213 ==

== ENCOUNTER 2024-09-05 15:17 | Outpatient (REF) | payer MEDICARE, BC, SELFPAY ==
[2024-09-05 21:19] LABS: Bilirubin Negative (Negative); Blood Negative (Negative); Clarity Clear (Clear); Glucose Negative (Negative); Ketones Negative (Negative); Leukocyte Esterase Trace (Negative); Nitrite Negative (Negative); Urobilinogen 0.2 mg/dL (Up to 0.2)
[2024-09-05 21:25] LABS: Bacteria Negative HPF (Negative); C & S Indicated? No; Crystals Negative HPF (Negative); Epithelial Cells Few HPF (Negative); Mucus Negative (Negative); RBC 0-2 HPF (0-2)
== END 2024-09-05 15:18 | disposition home or self-care (01) ==
LOC: NCHCN 15:17
PROVIDERS: PCP Nurse Practitioner Family; Visit Provider Nurse Practitioner Family
DX: Z87.440 Personal history of urinary (tract) infections (principal)
CPT/HCPCS: 81003; 81015

== ENCOUNTER 2024-09-07 13:22 | Outpatient (REF) | payer MEDICARE, BC, SELFPAY ==
[2024-09-07 14:38] LABS: ALT 43 U/L (14-59); AST 23 U/L (15-37); Albumin 3.8 g/dL (3.4-5.0); Alkaline Phosphatase 128 U/L (46-116); Anion Gap 8.4 mmol/L (3-11); BUN 16 mg/dL (7-18); Bilirubin, Total 0.5 mg/dL (0.2-1.0); CO2 28.6 mmol/L (21.0-32.0); Calcium 9.9 mg/dL (8.5-10.1); Chloride 104 mmol/L (98-107); Creatine Kinase 62 U/L (26-192); Estimated GFR 61.75 (mL/min/1.73m2); Glucose 125 mg/dL (74-106); Potassium 4.4 mmol/L (3.5-5.1); Sodium 141 mmol/L (136-145); TSH (W/Ref FT4) 0.68 uIU/mL (0.36-3.74); Total Protein 7.6 g/dL (6.4-8.2)
== END 2024-09-07 13:23 | disposition home or self-care (01) ==
LOC: NCHCN 13:22
PROVIDERS: PCP Nurse Practitioner Family; Visit Provider Nurse Practitioner Family
DX: K11.7 Disturbances of salivary secretion (principal)
CPT/HCPCS: 80053; 82550; 84443

== ENCOUNTER 2024-10-16 02:08 | Outpatient (CLI) | payer MEDICARE, BC, SELFPAY ==
--- NOTE | 2024-10-16 07:00 | DI.RAD_ITS ---
Exam(s) XR FOOT RT COMPLETE EXAM: XR FOOT RT COMPLETE CLINICAL HISTORY: Right foot pain.m79.671. TECHNIQUE: 2D digital imaging was performed of the right foot. Three images were obtained. AP, obl ique and lateral views were obtained. COMPARISON: No exams were available for comparison FINDINGS: BONES: No acute fracture is present. No bony destructive lesion is seen. JOINTS: No dislocation present. There appear to be hammertoe deformities of the 2nd through 5th toes. Please correlate clinically. Joint spaces are fairly well maintained. SOFT TISSUE: Normal. IMPRESSION: No acute abnormality. DATA REPOSITORY: RADIATION DOSE DELIVERED:
--- NOTE | 2024-10-16 07:00 | DI.RAD_ITS ---
Exam(s) XR FOOT LT COMPLETE EXAM: XR FOOT LT COMPLETE CLINICAL HISTORY: Left foot pain,m79.672. TECHNIQUE: 2D digital imaging was performed of the left foot. Four images were obtained. AP, obliq ue and lateral views were obtained. COMPARISON: No exams were available for comparison FINDINGS: BONES: No acute fracture is present. No bony destructive lesion is seen. JOINTS: No dislocation present. There is a marked hallux valgus deformity with lateral subluxation of the proximal phalanx of the great toe relative to the 1st metatarsal head. There are degenerative c hanges seen in the foot particularly at the 1st metatarsophalangeal joint. There is a small spur at the dorsal aspect of the 1st metatarsal head. SOFT TISSUE: Normal. IMPRESSION: Marked hallux valgus deformity with subluxation laterally of the 1st MTP joint. Degenerative changes of the left foot. DATA REPOSITORY: RADIATION DOSE DELIVERED:
== END 2024-10-16 02:28 ==
LOC: DI 02:08
PROVIDERS: PCP Nurse Practitioner Family; Visit Provider Podiatrist
DX: M79.672 Pain in left foot (principal); M79.671 Pain in right foot; M20.12 Hallux valgus (acquired), left foot; B35.1 Tinea unguium; G80.1 Spastic diplegic cerebral palsy; M79.674 Pain in right toe(s); M79.675 Pain in left toe(s); I70.291 Other atherosclerosis of native arteries of extremities, right leg; I70.91 Generalized atherosclerosis; M21.371 Foot drop, right foot; M21.612 Bunion of left foot; R09.89 Other specified symptoms and signs involving the circulatory and respiratory systems; R20.8 Other disturbances of skin sensation; R60.0 Localized edema; L65.9 Nonscarring hair loss, unspecified; L53.8 Other specified erythematous conditions; L60.2 Onychogryphosis; L60.3 Nail dystrophy
CPT/HCPCS: 11056; 73630

== ENCOUNTER 2024-10-26 16:03 | Outpatient (REF) | payer MEDICARE, BC, SELFPAY | END 2024-10-26 16:04 | disposition home or self-care (01) | LOC: NCHCN 16:03 | PROVIDERS: PCP Nurse Practitioner Family; Visit Provider Nurse Practitioner Family | DX: R32 Unspecified urinary incontinence (principal); Z87.440 Personal history of urinary (tract) infections | CPT/HCPCS: 87086 ==

== ENCOUNTER → 2024-11-05 09:40 | Outpatient (BNVA) | payer MEDICARE, BC, SELFPAY | PROVIDERS: PCP Nurse Practitioner Family; Referring Provider Nurse Practitioner Family; Visit Provider Psychiatry & Neurology Neurology | DX: G80.1 Spastic diplegic cerebral palsy (principal); R26.9 Unspecified abnormalities of gait and mobility; G40.209 Localization-related (focal) (partial) symptomatic epilepsy and epileptic syndromes with complex partial seizures, not intractable, without status epilepticus; F81.9 Developmental disorder of scholastic skills, unspecified | CPT/HCPCS: 99214 ==

== ENCOUNTER → 2025-01-14 14:45 | Outpatient (BNVA) | payer MEDICARE, BC, SELFPAY | PROVIDERS: PCP Nurse Practitioner Family; Referring Provider Nurse Practitioner Family; Visit Provider Nurse Practitioner Gerontology | DX: K59.00 Constipation, unspecified (principal); R32 Unspecified urinary incontinence; R39.9 Unspecified symptoms and signs involving the genitourinary system | CPT/HCPCS: 99213; 51798 ==

== ENCOUNTER → 2025-01-15 11:03 | Outpatient (BNVA) | payer MEDICARE, BC, MEDICAID, SELFPAY | PROVIDERS: PCP Nurse Practitioner Family; Referring Provider Nurse Practitioner Family; Visit Provider Podiatrist | DX: M79.675 Pain in left toe(s) (principal); L84 Corns and callosities; I73.89 Other specified peripheral vascular diseases; R09.89 Other specified symptoms and signs involving the circulatory and respiratory systems; R20.8 Other disturbances of skin sensation; R60.0 Localized edema; L65.9 Nonscarring hair loss, unspecified; L53.8 Other specified erythematous conditions; L60.2 Onychogryphosis; L60.3 Nail dystrophy; B35.1 Tinea unguium; L85.8 Other specified epidermal thickening | CPT/HCPCS: 11056 ==

== ENCOUNTER 2025-02-14 19:20 | Outpatient (REF) | payer MEDICARE, BC, MEDICAID, SELFPAY ==
[2025-02-14 16:28] LABS: Glucose Negative (Negative)
[2025-02-14 16:45] LABS: C & S Indicated? No; RBC 0-2 HPF (0-2)
== END 2025-02-14 19:21 | disposition home or self-care (01) ==
LOC: LBN 19:20
PROVIDERS: PCP Nurse Practitioner Family; Visit Provider Registered Nurse
DX: G80.1 Spastic diplegic cerebral palsy (principal); F01.B18 Vascular dementia, moderate, with other behavioral disturbance
CPT/HCPCS: 81003; 81015

== ENCOUNTER 2025-04-04 04:26 | Outpatient (CLI) | payer MEDICARE, BC, MEDICAID, SELFPAY ==
--- NOTE | 2025-04-04 | DI.RAD_ITS ---
Exam(s) XR KNEE LT 3V AP,LAT,BLUE EXAM: XR KNEE LT 3V AP,LAT,BLUE CLINICAL HISTORY: PAIN JOINT KNEE LT, M25.562. TECHNIQUE: 2D digital imaging was performed. COMPARISON: No exams were available for comparison FINDINGS: 3 nonweightbearing views: No evidence of fracture nor obvious knee joint effusion. There is no joint space narrowing on these nonweightbearing views. There are no obvious osteochondral defects evident. Bone density normal. No osseous lesions. No chondrocalcinosis. IMPRESSION: No significant radiographic findings on these 3 nonweightbearing views of left knee. DATA REPOSITORY: RADIATION DOSE DELIVERED:
== END 2025-04-04 04:46 ==
LOC: DI 04:26
PROVIDERS: PCP Nurse Practitioner Family; Visit Provider Nurse Practitioner Family
DX: M25.562 Pain in left knee (principal)
CPT/HCPCS: 73562

== ENCOUNTER → 2025-05-02 09:57 | Outpatient (BNVA) | payer MEDICARE, BC, MEDICAID, SELFPAY | PROVIDERS: PCP Nurse Practitioner Family; Referring Provider Nurse Practitioner Family; Visit Provider Physician Assistant | DX: M25.562 Pain in left knee (principal); R26.89 Other abnormalities of gait and mobility | CPT/HCPCS: 99213 ==

== ENCOUNTER → 2025-05-06 11:13 | Outpatient (BNVA) | payer MEDICARE, BC, MEDICAID, SELFPAY | PROVIDERS: PCP Nurse Practitioner Family; Referring Provider Nurse Practitioner Family; Visit Provider Psychiatry & Neurology Neurology | DX: G80.1 Spastic diplegic cerebral palsy (principal); R26.9 Unspecified abnormalities of gait and mobility; G40.209 Localization-related (focal) (partial) symptomatic epilepsy and epileptic syndromes with complex partial seizures, not intractable, without status epilepticus; F81.9 Developmental disorder of scholastic skills, unspecified | CPT/HCPCS: 99214 ==

== ENCOUNTER → 2025-06-11 11:31 | Outpatient (BNVA) | payer MEDICARE, BC, MEDICAID, SELFPAY | PROVIDERS: PCP Nurse Practitioner Family; Referring Provider Nurse Practitioner Family; Visit Provider Podiatrist | DX: L60.3 Nail dystrophy (principal); L60.2 Onychogryphosis; B35.1 Tinea unguium; I70.291 Other atherosclerosis of native arteries of extremities, right leg; G80.1 Spastic diplegic cerebral palsy; I70.91 Generalized atherosclerosis; M21.371 Foot drop, right foot; L84 Corns and callosities; I73.89 Other specified peripheral vascular diseases; R09.89 Other specified symptoms and signs involving the circulatory and respiratory systems; R20.8 Other disturbances of skin sensation; R60.0 Localized edema; L65.9 Nonscarring hair loss, unspecified; L53.8 Other specified erythematous conditions; L85.8 Other specified epidermal thickening | CPT/HCPCS: 11719; 11720 ==